=== PATIENT | male | born 1965 | race Caucasian/White ===

== ENCOUNTER 2020-07-15 13:52 | Outpatient (CLI) | payer BC, SELFPAY ==
--- NOTE | ~2020-07-15 | PE_ITS ---
EXAMINATION: PET skull to mid thigh DATE: 07/15/2020 16:08 INDICATION: Enlarged lymph nodes TECHNIQUE: Blood glucose level was 122 mg/dL. 8.976 mCi of 18-fluorodeoxyglucose (18-FDG) was adminis tered i.v. Low dose computed tomography (CT) images were acquired from the vertex through the knees f or attenuation correction and anatomic localization. Positron emission tomography (PET) images were a cquired in the same distribution beginning 68 minutes after injection. Images including fused PET/CT images were reconstructed in axial, coronal, and sagittal planes. Automated exposure control techniqu e was employed. The dose-length product was 1927.62mGy-cm. COMPARISON: None FINDINGS: Head/neck: There is symmetric increased activity in the oral cavity, nares, palatine tonsils, submandibular glan ds, laryngeal muscles and ocular muscles without CT correlate, likely physiologic. No pathologically enlarged cervical lymphadenopathy or suspicious foci of increased FDG uptake in the visualized head o r neck. Chest: Diffuse groundglass opacities throughout both lungs with dependent predominance and which along with some smooth septal line thickening at the lung bases is most consistent with pulmonary edema. No pleu ral effusion. Cardiomegaly. No pathologically enlarged thoracic lymphadenopathy. Mild muscular activi ty along the clavicular side of the left pectoralis major muscle without radiologic correlate which i s likely physiologic. No suspicious foci of abnormal thoracic FDG uptake. Abdomen/pelvis/thighs: Physiologic renal accumulation and excretion of FDG activity in the kidneys, bladder and along portio ns of ureters. Normal degree and heterogenous pattern of increased uptake throughout the liver withou t radiologic correlate or dominant FDG avid lesion. The gallbladder, pancreas, spleen and bilateral a drenal glands are normal. A few scattered colonic diverticula without adjacent from [address] diverticulitis. Mild uptake scattered throughout the bowels without radiologic correlate, also lik flores physiologic. Normal appendix. No other abnormal foci of increased FDG uptake or pathologically en larged lymphadenopathy in the abdomen, pelvis or proximal thighs. Specifically no abnormal FDG uptake associated with the previously noted prominent right inguinal lymph node which is comprised almost e ntirely of a large central fatty hilum. Musculoskeletal: C5-C6 interspinal fusion with plate and screw fixation. No suspicious lytic, blastic or FDG avid bone lesions. IMPRESSION: 1. No suspicious FDG avid lesions are pathologically enlarged lymphadenopathy to suggest malignancy/m etastatic disease. 2. Likely congestive heart failure with mild cardiomegaly and mild pulmonary edema. Reviewed, dictated and finalized at location A. IMPRESSION: 1. No suspicious FDG avid lesions are pathologically enlarged lymphadenopathy t o suggest malignancy/metastatic disease. 2. Likely congestive heart failure with mild cardiomegaly and mild pulmonary ed tiffany.
[2020-07-15 14:17] LABS: Glucose Point of Care 122 (65-105)
== END 2020-07-15 13:53 | disposition home or self-care (01) ==
PROVIDERS: PCP Family Medicine; Visit Provider Family Medicine
DX: R59.0 Localized enlarged lymph nodes (principal); I51.7 Cardiomegaly; J81.1 Chronic pulmonary edema
CPT/HCPCS: 78815; A9552

== ENCOUNTER 2020-11-02 15:09 | Emergency (ER) | payer BC, SELFPAY ==
--- NOTE | ~2020-11-02 | XR_ITS ---
EXAMINATION: XR chest 1V portable DATE: 11/02/2020 15:34 INDICATION: Shortness of breath, weakness, COVID pneumonia TECHNIQUE: frontal view of the chest was obtained. COMPARISON: Chest radiograph dated 05/04/1990 FINDINGS: Opacities at the right lung base partially obscured by the right hemidiaphragm which could represent atelectasis and/or pneumonia. No pulmonary edema, pleural effusion or pneumothorax. The cardiomediast inal silhouette is normal. Anterior plate and screw fixation for lower cervical anterior spinal fusio n. IMPRESSION: 1. Right basilar opacities which could represent atelectasis and/or pneumonia. Reviewed, dictated and finalized at location B. INTERCEPT CONTROLLER
[2020-11-02 15:13] VITALS: BP 145/93; PULSE 79; RESP 18; TEMP 36.6; O2SAT 97
[2020-11-02 15:16] VITALS: PULSE 80
--- NOTE | 2020-11-02 15:20 | ECG_ITS ---
Measurements Intervals Trion Rate: 77 P: 29 MT: 217 QRS: -58 QRSD: 118 T: 7 QT: 371 QTc: 421 Interpretive Statements SINUS RHYTHM WITH FIRST DEGREE AV BLOCK LEFT ANTERIOR FASCICULAR BLOCK BASELINE ARTIFACT- I, II, AVR, AVL ABNORMAL ECG Electronically Signed On 11-02-2020 15:55:10 [employer] by Dylan Garcia D.O.
[2020-11-02 15:32] LABS: Basophils Percent Auto 0.3 % (0.2-1.2); Eosinophils Absolute Auto 0.1 K/mm3 (0-0.3); Eosinophils Percent Auto 1.3 % (0-4.4); Hematocrit 48.3 % (42.0-52.0); Immature Granulocyte Absolute 0.04 K/mm3 (0.00-0.031); Immature Granulocyte Percent A 0.6 % (0-0.5); Lymphocytes Absolute Auto 1.39 K/mm3 (0.9-3.2); Lymphocytes Percent Auto 22.1 % (18.3-44.2); Mean Corpuscular HGB Conc 35.2 g/dl (32-36); Mean Corpuscular Volume 85.3 fl (80-100); Monocytes Absolute Auto 0.4 K/mm3 (0.1-0.6); Neutrophils Absolute Auto 4.3 K/mm3 (1.3-6.7); Neutrophils Percent Auto 68.7 % (45.5-73.1); Platelet Count Result 169 k/mm3 (150-375); Red Blood Count 5.66 M/mm3 (4.6-6.20); Red Cell Distribution Width 12.3 % (11.5-14.5); White Blood Count 6.3 K/mm3 (4.5-10.0)
[2020-11-02 15:42] LABS: Anion Gap 7 mmol/L (8-16); Blood Urea Nitrogen 16 mg/dL (9-20); Calcium 9.4 mg/dL (8.4-10.2); Carbon Dioxide 28 mmol/L (22-30); Chloride 103 mmol/L (98-107); Estimated CRCL calculation 106 ml/min; Estimated Glomerular Filt Rate > 60; Glucose 114 mg/dL (75-110); Potassium 3.8 mmol/L (3.4-5.0); Sodium 138 mmol/L (137-145)
[2020-11-02 15:49] LABS: Alveolar/Arterial O2 Gradient 29.2 mmHg; Base Excess ABG 0.9 mEq/l (+/-2.0); Device ROOM AIR; Fractional Inspired Oxygen 21 %; HCO3 ABG 25.3 mEq/l (22.0-26.0); Modified Allen's Test Pass; Oxygen Content ABG 22.1 %vol (16.0-22.0); Oxyhemoglobin 94.3 % THb (90.0-100.0); PCO2 ABG 39.8 mmHg (35.0-45.0); PO2 ABG 72.9 mmHg (80.0-100.0); PO2 FiO2 Ratio Arterial Blood 3.47 %; Site Drawn RIGHT RADIAL; Total Hemoglobin 16.7 g/dL (12.0-18.0); pH ABG 7.421 (7.350-7.450)
[2020-11-02 16:03] LABS: D Dimer 0.43 ug/mL (<0.48)
--- NOTE | 2020-11-02 16:22 | ED.SOB ---
HPI - SOB/Dyspnea General Chief Complaint: Shortness of Breath/Dyspnea Stated Complaint: COVID, PCP Sent Patient Time Seen by Provider: 11/02/20 15:15 Source: patient Mode of arrival: ambulatory Limitations: no limitations History of Present Illness HPI Narrative: 55 years old white male presents with shortness of breath on exertion. Patient had positive Covid test on October 25, Covid symptoms 2 to 3 days prior to that. Patient was seen at another emergency room 2 days ago for the same symptoms. Patient was asked by his family physician to go to the emergency room for evaluation. Currently patient denying any chest pain or shortness of breath as long as laying down in bed. Patient drove himself to the emergency room. Related Data Home Medications Medication Instructions Recorded Confirmed furosemide 11/02/20 metoprolol succinate PO 11/02/20 Allergies Allergy/AdvReac Type Severity Reaction Status Date / Time No Known Allergies Allergy Verified 11/02/20 15:17 Review of Systems Review of Systems: Narrative: CONSTITUTIONAL: Denies fever, chills, or sweats. EYES: Denies visual changes, redness, or discharge. ENT: Denies rhinorrhea, congestion, sore throat, or otalgia. CARDIOVASCULAR: Denies chest pain, palpitations, or edema. RESPIRATORY: Cough and shortness of breath on exertion GASTROINTESTINAL: Denies abdominal pain, nausea, vomiting, or diarrhea. GENITOURINARY: Denies dysuria or hematuria. SKIN: Denies rash or itching. MUSCULOSKELETAL: Denies back pain, joint pain, or myalgia. NEUROLOGIC: Denies headache, numbness, or weakness. PSYCHIATRIC: Denies anxiety or depression. Exam Narrative: Exam Narrative: General appearance: Well-developed, well-nourished Skin: Normal color Head: Normocephalic, nontraumatic Eyes: Clear conjunctiva ENT: Oropharynx normal, ears normal, nose normal Neck: Supple, nontender Chest and respiratory: Airway patent, no respiratory distress, no accessory muscle use, no wheezing or rhonchi Heart: Regular rate/rhythm Abdomen: Soft, nontender, no organomegaly, quiet bowel sounds Neurologic: Alert and oriented ?3, ANESTHESIOLOGY TECHNOLOGIST is normal as tested, no gross motor deficit Course Course Emergency Course: Stable Vital Signs Vital signs: Vital Signs Temperature 36.6 C 11/02/20 15:13 Pulse Rate 79 11/02/20 15:13 Respiratory Rate 18 12/15/20 15:13 Blood Pressure 145/93 H 11/02/20 15:13 Pulse Oximetry 97 11/02/20 15:13 Temperature 36.6 C 11/02/20 15:13 Pulse Rate 80 11/02/20 15:16 Respiratory Rate 18 11/02/20 15:13 Blood Pressure 145/93 H 11/02/20 15:13 Pulse Oximetry 97 11/02/20 15:13 MDM - SOB/Dyspnea MDM Narrative Medical decision making narrative: Patient had Covid symptoms 10 days ago, positive Covid test 8 days ago, came with shortness of breath on exertion. Labs, chest x-ray, ABG on room air, D-dimer ordered. Further plan to follow Differential Diagnosis Differential diagnosis: Likely pulmonary embolism and other (Covid pneumonia) Lab Data Result diagrams: 11/02/20 15:22 11/02/20 15:22 Labs: Lab Results 11/02/20 11/02/20 11/02/20 Range/Units 15:22 15:22 15:22 WBC 6.3 (4.5-10.0) K/mm3 RBC 5.66 (4.6-6.20) M/mm3 Hgb 17.0 (14.0-18.0) g/dL Hct 48.3 (42.0-52.0) % MCV 85.3 (80-100) fl MCH 30.0 (26-34) pg MCHC 35.2 (32-36) g/dl RDW 12.3 (11.5-14.5) % Plt Count 169 (150-375) k/mm3 MPV 11.0 H (7.4-10.4) fl Immature Gran % (Auto) 0.6 H (0-0.5) % Neut % (Auto) 68.7 (45.5-73.1) % Lymph % (Auto) 22.1 (18.3-44.2) % [place] % (Auto) 7.0 (2.6-8.5) % Eos % (Auto) 1.3 (0-4.4) % Baso
== END 2020-11-02 16:53 | disposition home or self-care (01) ==
PROVIDERS: Emergency Provider Emergency Medicine; PCP Nurse Practitioner Adult Health
DX: U07.1 COVID-19 (principal); R91.8 Other nonspecific abnormal finding of lung field; I44.0 Atrioventricular block, first degree; I44.4 Left anterior fascicular block
CPT/HCPCS: 36415; 36600; 71045; 80048; 82805; 85025; 85380; 93005; 99284

== ENCOUNTER 2020-12-10 08:30 | Outpatient (CLI) | payer BC, SELFPAY ==
--- NOTE | 2020-12-10 | ECHO_ITS ---
Patient Info Name: Ru Gallegos Age: 55 years : 1965 Gender: Male Ht: 73 in Wt: 270 lbs BSA: 2.55 m2 HR: 63 bpm BP: 146 / 102 mmHg Technical Quality: Fair Exam Date: 12/10/2020 9:14 AM Exam Location: [facility] Patient Status: Outpatient Admit Date: 12/10/2020 Staff Ordering Physician: GermánMimi NP Terrazzo Roller: Jessica Peterson RDCS Attending Provider: GermánMimi NP Exam Type: CA echo doppler color flow Study Info Indications - chf Complete two-dimensional, color flow and Doppler transthoracic echocardiogram is performed. Summary 1. Complete two-dimensional, color flow and Doppler transthoracic echocardiogram is performed. 2. Left ventricular chamber dimension is normal. 3. Left ventricular systolic function is normal, estimated at 60-65%. 4. The left ventricular diastolic function is grade I diastolic dysfunction. 5. E/e' 9 is minimally elevated. 6. Left atrial chamber dimension is mildly enlarged. 7. No pulmonary hypertension, estimated pulmonary arterial systolic pressure is 26 mmHg. Left Ventricle E/e' 9 is minimally elevated. Left ventricular chamber dimension is normal. Left ventricular systolic function is normal, estimated at 60-65%. The left ventricular diastolic function is grade I diastolic dysfunction. Right Ventricle Right ventricular chamber dimension is normal. Right ventricular systolic function is normal. Left Atria Left atrial chamber dimension is mildly enlarged. Right Atria Right atrial chamber dimension is normal. Aortic Valve The aortic valve is trileaflet. There is no aortic valve stenosis. There is no aortic valve regurgitation. Pulmonic Valve There is no pulmonic regurgitation. Mitral Valve There is no mitral valve stenosis. There is no mitral valve regurgitation. Tricuspid Valve There is no tricuspid valve regurgitation. No pulmonary hypertension, estimated pulmonary arterial systolic pressure is 26 mmHg. Pericardium/Pleural There is no pericardial effusion. Inferior Vena Cava Normal inferior vena cava with >50% collapse upon inspiration consistent with normal right atrial pressure, 5 mmHg. Aorta The aortic root size at the sinus of Valsalva is normal. Left Ventricular Outflow Tract Name Value Normal LVOT 2D LVOT Diameter 2.0 cm LVOT Doppler LVOT Peak Gradient 4 mmHg LVOT Mean Gradient 3 mmHg LVOT VTI 24 cm LVOT VTI/AV VTI Ratio 0.8 LVOT Stroke Volume 76 ml LVOT CO 15.7 l/min LVOT CI 6.2 l/min/m2 Pulmonic Valve Name Value Normal PV Doppler PV Peak Gradient 4 mmHg Mitral Valve
--- NOTE | 2020-12-10 13:53 | WPDSIXMINUTE ---
Six Minute Walk This is a 6 minutes walk for exertional dyspnea. Findings: The patient's resting room air oxygen saturation measured by pulse oximetry was 93% and her heart rate was 63 bpm. Patient ambulated for 274 meters and oxygen saturation remained 93 to 94%. Heart rate at the end of the study was 90 bpm. There are no prior studies for comparison.
== END 2020-12-10 08:31 | disposition home or self-care (01) ==
PROVIDERS: PCP Nurse Practitioner Adult Health; Visit Provider Nurse Practitioner Adult Health
DX: I50.9 Heart failure, unspecified (principal); Z99.81 Dependence on supplemental oxygen
CPT/HCPCS: 93306; 94618

== ENCOUNTER 2021-02-11 09:30 | Outpatient (RCR) | payer BC, SELFPAY ==
--- NOTE | 2021-01-11 09:06 | PCCPR ---
Recent Covid pneumonia October 2020
[2021-01-11 09:14] VITALS: BP 124/86; PULSE 56; RESP 20; TEMP 36.4; O2SAT 95
--- NOTE | 2021-01-28 09:52 | PCCPR ---
Addendum entered by Meche Soto RN 02/08/21 12:17: Called Theresa to inquire his plan to resume rehab. Unable to leave message mailbox is full. 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 Original Note: THERESA UNABLE TO ATTEND TODAY AND NEXT WEEK DUE TO WORK SCHEDULE. PLANS TO RETURN 02/08.
--- NOTE | 2021-02-15 10:16 | PCCPR ---
Absent today, Ru was called into work.
--- NOTE | 2021-03-18 10:29 | PCCPR ---
Addendum entered by Meche Soto RN 04/12/21 11:23: 04/12/21 LM for Ru to let him know since he has made no attempt to get in contact with us regarding his rotation schedule. We had even moved him to a later in day different day of week to accommodate his schedule. His last attended session was 02/11/21. Discharge note sent to Ru and his referring MD. Original Note: Spoke to Ru about attendance policy State he should be able to come to class next week 03/22/21 and Sunday03/25/21 and plans to discuss his availability. Reminded him of our attendance policy.
== END 2021-04-12 12:27 | disposition home or self-care (01) ==
LOC: ANHCPREHAB 09:30
PROVIDERS: PCP Nurse Practitioner Adult Health; Visit Provider Internal Medicine
DX: J12.82 Pneumonia due to coronavirus disease 2019 (principal)
CPT/HCPCS: 97150; G0239; G0424

== ENCOUNTER → 2021-07-21 04:35 | Outpatient (CLI) | payer BC, SELFPAY ==
[2021-07-22 18:14] LABS: SARS-CoV-2 RNA PCR Negative
== END ==
PROVIDERS: PCP Nurse Practitioner Adult Health; Visit Provider Family Medicine
DX: A08.4 Viral intestinal infection, unspecified (principal); Z20.822 Contact with and (suspected) exposure to COVID-19
CPT/HCPCS: C9803; U0003; U0005

== ENCOUNTER 2022-01-11 16:30 | Outpatient (CLI) | payer BC, SELFPAY ==
--- NOTE | ~2022-01-11 | US_ITS ---
EXAMINATION: US venous doppler [facility] EXAM DATE: 01/11/2022 17:02 INDICATION: Left calf pain. TECHNIQUE: Multiple grayscale, color flow and Doppler images of the left lower extremity deep venous system were obtained and reviewed. There is no prior study for comparison. FINDINGS: The left common femoral, femoral and profunda veins demonstrate normal color flow, respirat ory variation, augmentation and compressibility. Compressibility, color flow confirmed within the le ft popliteal, posterior tibial, peroneal, and greater saphenous veins. IMPRESSION: 1. No left lower extremity deep venous thrombosis. Reviewed, dictated and finalized at location G. OR ERP CONSULTANT
== END 2022-01-11 16:31 | disposition home or self-care (01) ==
LOC: ANHIMG 16:38
PROVIDERS: PCP Nurse Practitioner Adult Health; Visit Provider Nurse Practitioner Adult Health
DX: M79.662 Pain in left lower leg (principal)
CPT/HCPCS: 93971

== ENCOUNTER 2022-04-07 23:46 | Emergency (ER) | payer BC, SELFPAY ==
--- NOTE | ~2022-04-07 | XR_ITS ---
EXAMINATION: XR knee LT min 4V DATE: 04/08/2022 00:58 INDICATION: Left knee pain and swelling TECHNIQUE: Anteroposterior, 2 oblique and crosstable lateral views of the left knee were obtained COMPARISON: None. FINDINGS: Left knee alignment is normal. No fracture. Tiny marginal osteophytes all 3 compartments with normal joint spaces on nonweightbearing imaging. Tiny moderate-sized left knee joint effusion without layer ing lipohemarthrosis. Soft tissues are otherwise unremarkable. IMPRESSION: 1. Moderate-sized left knee joint effusion. No acute osseous abnormality. Reviewed, dictated and finalized at location A.
[2022-04-07 23:52] VITALS: BP 151/82; PULSE 74; RESP 18; TEMP 36.4; O2SAT 99
--- NOTE | 2022-04-08 00:30 | ED.EXTPRO ---
HPI - Extremity Problem General Chief complaint: Extremity Problem,Nontraumatic <JACQUES Flores Last Filed: 04/08/22 04:10> Stated complaint: left leg swelling <JACQUES Flores Last Filed: 04/08/22 04:10> Time Seen by Provider: 04/08/22 00:04 <JACQUES Flores Last Filed: 04/08/22 04:10> Source: patient <JACQUES Flores Last Filed: 04/08/22 04:10> Mode of arrival: ambulatory <JACQUES Flores Last Filed: 04/08/22 04:10> Limitations: no limitations <JACQUES Flores Filed: 04/08/22 04:10> History of Present Illness HPI Narrative: Patient is a 56-year-old male who presents the ED with report of left lower extremity pain and swelling. Patient reports having pain and swelling around his left lateral knee radiating down his left calf for the past 5 to 7 days. He states he just noticed the swelling randomly. Denies any direct injury. He states he can notice the swelling in his knee and calf the most when he bends his left knee. Denies any fever, chills, chest pain, shortness of breath, recent cough or cold symptoms. No history of blood clots. No recent immobilizations, surgeries, long distance travel. No blood thinners. He did take 324 mg aspirin today with no relief of his symptoms. <JACQUES Flores Last Filed: 04/08/22 04:10> Related Data Home medications: Home Medications Medication Instructions Recorded Confirmed furosemide 11/02/20 albuterol sulfate 90 mcg/actuation 1 inh INHALATION Q4H 11/22/20 01/11/21 aerosol inhaler metoprolol succinate 50 mg 50 mg PO DAILY 11/22/20 01/11/21 tablet,extended release 24 hr <JACQUES Flores Last Filed: 04/08/22 04:10> Allergies/Adverse reactions: Allergies Allergy/AdvReac Type Severity Reaction Status Date / Time No Known Allergies Allergy Verified 04/08/22 00:07 <Brenna Ross PA-C - Last Filed: 04/08/22 04:10> Review of Systems Review of Systems: CONSTITUTIONAL: Denies fever, chills, or sweats. ENT: Denies rhinorrhea, congestion. CARDIOVASCULAR: Denies chest pain. RESPIRATORY: Denies cough or dyspnea. GASTROINTESTINAL: Denies nausea, vomiting SKIN: Reports swelling to left lateral knee, radiating down left calf. Denies rash or itching. MUSCULOSKELETAL: Reports left knee pain. Denies back pain. NEUROLOGIC: Denies headache, numbness, or weakness. <Brenna Ross PA-C - Last Filed: 04/08/22 04:10> All systems reviewed & are unremarkable except as noted in HPI and below <Brenna Ross PA-C - Last Filed: 04/08/22 04:10> PMFSH Past Medical History Medical History: Medical History (Updated 04/08/22 @ 01:47 by Brenna Ross PA-C) Acid reflux Heartburn <Brenna Ross PA-C - Last Filed: 04/08/22 04:10> Surgical History Surgical History: Surgical History (Updated 04/08/22 @ 00:32 by Brenna Ross PA-C) No pertinent past surgical history <Brenna Ross PA-C - Last Filed: 04/08/22 04:10> Family History Family History: Family History (Updated 01/11/21 @ 09:10 by Meche Soto RN) Father Cerebrovascular accident Mother Cerebrovascular accident Cancer of kidney Sibling Chronic obstructive pulmonary disease <Brenna Ross PA-C - Last Filed: 04/08/22 04:10> Social History Social History: Social History Smoking packs per day: 1.5 Smoking cigarettes per day: 30.0 Years smoked: 12 Smoking pack-years: 18.00 Smoking status: Former smoker Tobacco type: cigarettes Smoking end date: 11/19/08 Additional smoking assessment comments: recent covid pnuemonia <Brenna Ross PA-C - Last Filed: 04/08/22 04:10> Exam Narrative: GENERAL: Well appearing, well-nourished, non-toxic, in no acute distress. HEAD: Normocephalic, atraumatic. NECK: Supple. No adenopathy, no masses. RESPIRATORY: Airway patent, respirations nonlabored. Cl
[2022-04-08 01:02] VITALS: BP 122/71; PULSE 68; RESP 20; O2SAT 99
[2022-04-08 01:13] LABS: Basophils Absolute Auto 0.1 K/mm3 (0.0-0.1); Basophils Percent Auto 0.8 % (0.2-1.2); Eosinophils Absolute Auto 0.5 K/mm3 (0-0.3); Hematocrit 44.6 % (42.0-52.0); Hemoglobin 15.1 g/dL (14.0-18.0); Immature Granulocyte Percent A 1.1 % (0-0.5); Lymphocytes Absolute Auto 2.81 K/mm3 (0.9-3.2); Lymphocytes Percent Auto 32.3 % (18.3-44.2); Mean Corpuscular HGB Conc 33.9 g/dl (32-36); Mean Corpuscular Hemoglobin 29.9 pg (26-34); Mean Corpuscular Volume 88.3 fl (80-100); Monocytes Absolute Auto 0.8 K/mm3 (0.1-0.6); Monocytes Percent Auto 8.6 % (2.6-8.5); Neutrophils Absolute Auto 4.5 K/mm3 (1.3-6.7); Neutrophils Percent Auto 51.2 % (45.5-73.1); Platelet Count Result 240 k/mm3 (150-375); Red Blood Count 5.05 M/mm3 (4.6-6.20); White Blood Count 8.7 K/mm3 (4.5-10.0)
[2022-04-08 01:23] LABS: Prothrombin Time 12.8 Seconds (11.1-14.7)
[2022-04-08 01:26] LABS: D Dimer 0.39 ug/mL (<0.48)
[2022-04-08 01:29] LABS: Anion Gap 9 mmol/L (8-16); Blood Urea Nitrogen 18 mg/dL (9-20); Calcium 8.7 mg/dL (8.4-10.2); Carbon Dioxide 28 mmol/L (22-30); Chloride 104 mmol/L (98-107); Estimated CRCL calculation 135 ml/min; Estimated Glomerular Filt Rate > 60; Glucose 128 mg/dL (65-110); Potassium 3.6 mmol/L (3.4-5.0); Sodium 141 mmol/L (137-145)
[2022-04-08 02:22] VITALS: BP 106/63; PULSE 68; RESP 18; O2SAT 99
== END 2022-04-08 02:22 | disposition home or self-care (01) ==
PROVIDERS: Physician Assistant; Emergency Provider Emergency Medicine; PCP Nurse Practitioner Adult Health
DX: M79.89 Other specified soft tissue disorders (principal); K21.9 Gastro-esophageal reflux disease without esophagitis; Z87.891 Personal history of nicotine dependence
CPT/HCPCS: 36415; 73564; 80048; 85025; 85380; 85610; 85730; 99283

== ENCOUNTER 2022-04-08 07:11 | Outpatient (CLI) | payer BC, SELFPAY ==
--- NOTE | ~2022-04-08 | US_ITS ---
EXAMINATION: US venous doppler [facility] DATE: 04/08/2022 07:51 INDICATION: Left lower limb pain and swelling TECHNIQUE: Grayscale ultrasound images without and with compression and Doppler ultrasound images of the left lower extremity veins were obtained. COMPARISON: None. FINDINGS: The visualized portions of left common femoral vein, profunda (deep) femoral vein, femoral vein, popl iteal vein, peroneal veins, posterior tibial veins, gastrocnemius vein, lesser saphenous vein and gre ater saphenous vein outflow are patent. IMPRESSION: 1. No deep venous thrombosis in the left lower limb. Reviewed, dictated and finalized at location A.
== END 2022-04-08 07:12 | disposition home or self-care (01) ==
PROVIDERS: PCP Nurse Practitioner Adult Health; Visit Provider Physician Assistant
DX: M79.89 Other specified soft tissue disorders (principal)
CPT/HCPCS: 93971

== ENCOUNTER 2022-05-15 15:05 | Observation (INO) | payer BC, SELFPAY ==
[2022-05-15] VITALS (22 sets, daily range): BP systolic 126–157; BP diastolic 65–93; PULSE 60–80; RESP 10–28; TEMP 36.4–36.6; O2SAT 93–99; BMI 36.1
--- NOTE | ~2022-05-15 | CT_ITS ---
Patient Name: Patient Name MR#: Patient MRN Accession#: Accession Numbers EXAMINATION: CTA brain carotid DATE: 05/15/2022 17:26 INDICATION: DIAZ with visual changes TECHNIQUE: Computed tomographic angiography (CTA) of the head was performed without and with 100 mL O mnipaque-350 intravenous contrast. CTA of the neck was performed with intravenous contrast. The dose- length product was 1848.94 mGy-cm. Maximum intensity projection and volume rendered 3D-reconstruction s were created by the technologist on a separate workstation. COMPARISON: CT brain 05/04/2019. FINDINGS: CTA NECK: Aortic arch and proximal great vessels: Minimal calcification at the arch. Mild calcified origin of t he right vertebral artery, without significant stenosis. Right common carotid, carotid bifurcation, and internal carotid artery: No significant plaque.There i s 0% stenosis of the proximal right internal carotid artery relative to normal distal artery lumen di ameter (NASCET criteria). Left common carotid, carotid bifurcation, and internal carotid artery: No significant plaque.There is 0% stenosis of the proximal left internal carotid artery relative to normal distal artery lumen diam eter (NASCET criteria). Vertebral arteries: No significant plaque or stenosis. The right vertebral artery is dominant. 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 Other findings: Peripheral reticulation and honeycombing in the right upper lung. Biapical pleural sc arring. ACDF at C5-6. CTA HEAD: No large vessel occlusion, aneurysm, high flow vascular malformation, nidus or extravasation. No acute large vessel infarct, intracranial hemorrhage, mass, or hydrocephalus. IMPRESSION: 1. No arterial large vessel occlusion. No significant carotid or vertebral stenosis. 2. No acute intracranial process. 3. 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 Reviewed, dictated and finalized at location K. IMPRESSION: 1. No arterial large vessel occlusion. No significant carotid or vertebral lorrie nosis. 2. No acute intracranial process. 3. 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
--- NOTE | ~2022-05-15 | XR_ITS ---
EXAMINATION: XR chest 2V 05/15/2022 16:24 INDICATION: Visual disturbance. . PROCEDURE: 2 view chest COMPARISON: Comparison to multiple prior studies sequentially, with oldest reviewed study dated 08/19. FINDINGS: The lungs are clear. The cardiomediastinal silhouette is within normal limits. There are no pleural effusions. There is no pneumothorax suspected. Shallow inspiration. IMPRESSION: 1: NO ACUTE CARDIOPULMONARY DISEASE. Reviewed, dictated and finalized at location A.
--- NOTE | ~2022-05-15 | MR_ITS ---
EXAMINATION: MR brain/brain stem wo/w con DATE: 05/16/2022 08:25 INDICATION: Strokelike symptoms with visual changes. Acute vision loss. TECHNIQUE: Magnetic resonance imaging (MRI) of the brain and brainstem was performed without and with 20 mL Multihance intravenous contrast. Sequences included sagittal and axial T1-weighted SE, axial d iffusion-weighted FS SE, axial T2*-weighted GRE, axial 3D SWAN, axial T2-weighted FLAIR, and axial T2 -weighted FSE. Postcontrast axial and coronal T1-weighted SE was obtained. Apparent diffusion coeffic ient (ADC) maps were created. COMPARISON: Brain CT angiogram dated 05/15/2022 FINDINGS: There are no areas of restricted diffusion to suggest acute infarction. No intracranial hemorrhage or abnormal intracranial mass lesion. There are no intraparenchymal signal abnormalities seen on the ot her pulse sequences. The ventricles are symmetric and normal in size. There are no abnormal extra-axi al fluid collections. Flow voids are seen in the cerebral arteries on the T2-weighted sequences consi stent with their expected patency. The right vertebral artery is dominant and appears to supply the e xclusive supply to the basilar artery. The diminutive left vertebral artery appears to terminate at t he left posterior inferior cerebellar artery on prior contrast enhanced CT. Mild mucosal thickening i n the paranasal sinuses. Visualized orbits and soft tissues are unremarkable. There are no areas of a bnormal enhancement on the post contrast images. IMPRESSION: 1. No acute intracranial process or abnormally enhancing brain lesions. Reviewed, dictated and finalized at location A.
--- NOTE | 2022-05-15 15:52 | PC.NURSE ---
Dr. Rucker at bedside to assess pt.
[2022-05-15 16:17] LABS: Basophils Absolute Auto 0.1 K/mm3 (0.0-0.1); Basophils Percent Auto 0.8 % (0.2-1.2); Eosinophils Absolute Auto 0.4 K/mm3 (0-0.3); Eosinophils Percent Auto 4.6 % (0-4.4); Hematocrit 44.2 % (42.0-52.0); Immature Granulocyte Absolute 0.05 K/mm3 (0.00-0.031); Immature Granulocyte Percent A 0.6 % (0-0.5); Lymphocytes Absolute Auto 2.12 K/mm3 (0.9-3.2); Lymphocytes Percent Auto 25.5 % (18.3-44.2); Mean Corpuscular HGB Conc 33.9 g/dl (32-36); Mean Corpuscular Hemoglobin 29.7 pg (26-34); Mean Corpuscular Volume 87.5 fl (80-100); Mean Platelet Volume 10.8 fl (7.4-10.4); Monocytes Absolute Auto 0.7 K/mm3 (0.1-0.6); Monocytes Percent Auto 8.5 % (2.6-8.5); Platelet Count Result 224 k/mm3 (150-375); Red Blood Count 5.05 M/mm3 (4.6-6.20); Red Cell Distribution Width 12.7 % (11.5-14.5); White Blood Count 8.3 K/mm3 (4.5-10.0)
[2022-05-15 16:28] LABS: Partial Thromboplastin Time 30.4 SECONDS (22.3-36.8)
[2022-05-15 16:30] LABS: Alanine Aminotransferase 64 U/L (6-50); Albumin Level 4.4 g/dL (3.5-5.1); Alkaline Phosphatase 60 U/L (38-126); Anion Gap 6 mmol/L (8-16); Aspartate Amino Transferase 40 U/L (17-59); Bilirubin,Total 1.3 mg/dL (0.2-1.3); Blood Urea Nitrogen 17 mg/dL (9-20); Calcium 9.1 mg/dL (8.4-10.2); Carbon Dioxide 30 mmol/L (22-30); Chloride 104 mmol/L (98-107); Estimated CRCL calculation 98 ml/min; Estimated Glomerular Filt Rate > 60; Glucose 108 mg/dL (65-110); Potassium 3.8 mmol/L (3.4-5.0); Sodium 140 mmol/L (137-145)
[2022-05-15 16:42] LABS: Troponin I < 0.012 ng/mL (0.000-0.034)
--- NOTE | 2022-05-15 17:08 | PC.NURSE ---
Patient off unit to CT.
[2022-05-15] MEDS: KETOROLAC 15 MG/ML VIAL (*BKC) IV PUSH (17:57)
--- NOTE | 2022-05-15 18:00 | ED.NEUROSD ---
HPI - Neuro Symptoms/Deficit General Chief Complaint: Neuro Symptoms/Deficit Stated Complaint: pcp sent here - vision changes last night Time Seen by Provider: 05/15/22 15:30 History of Present Illness HPI Narrative: Patient is a 56-year-old male who presents ER with visual disturbance and headache. Reports last night around 10:30 PM he began having acute loss of vision. He cannot read the gas station pump. This persisted and then he got in his car to drive and he began to develop discoloration in the periphery of his vision. Symptoms persisted for 30 minutes. They then went away. Today he has a mild headache. No slurred speech or facial droop today or yesterday. Denies difficulty with balance or focal weakness. No history of CVA. No history of migraine. Related Data Home Medications Medication Instructions Recorded Confirmed furosemide 20 mg tablet 11/02/20 albuterol sulfate 90 mcg/actuation 1 inh inhalation Q4H 11/22/20 01/11/21 aerosol inhaler metoprolol succinate 50 mg 50 mg PO DAILY 11/22/20 01/11/21 tablet,extended release 24 hr hydrochlorothiazide 12.5 mg tablet tablet 05/15/22 Allergies Allergy/AdvReac Type Severity Reaction Status Date / Time No Known Allergies Allergy Verified 05/15/22 15:19 Review of Systems Review of Systems: All systems reviewed & are unremarkable except as noted in HPI and below Constitutional: Constitutional: Denies chills and Denies fever(s) Eyes: Eyes: Reports change in vision and Denies photophobia Comments: Flashing lights and periphery ENT: Denies nasal congestion and Denies sore throat Cardiovascular: Cardiovascular: Denies chest pain, Denies rapid heart rate and Denies radiating jaw, neck or arm pain Respiratory: Respiratory: Denies cough and Denies dyspnea Neurologic: Denies syncope, Reports headache(s), Denies focal weakness and Denies numbness PMFSH Past Medical History Medical History (Updated 05/15/22 @ 18:27 by Maxx Rucker MD) Acid reflux Heartburn Hypertension Surgical History Surgical History (Updated 04/08/22 @ 00:32 by Brenna Ross PA-C) No pertinent past surgical history Family History Family History (Updated 01/11/21 @ 09:10 by Meche Soto RN) Father Cerebrovascular accident Mother Cerebrovascular accident Cancer of kidney Sibling Chronic obstructive pulmonary disease Social History Social History Smoking packs per day: 1.5 Smoking cigarettes per day: 30.0 Years smoked: 12 Smoking pack-years: 18.00 Smoking status: Former smoker Tobacco type: cigarettes Smoking end date: 11/19/08 Additional smoking assessment comments: recent covid pnuemonia Exam Narrative: GENERAL: Well-appearing, well-nourished, and in no acute distress. HEAD: Normocephalic, atraumatic. EYES: PERRLA and EOMI. ENT: Mucous membranes moist. CHEST: Clear to auscultation. No respiratory distress. HEART: Regular rate and rhythm. Normal peripheral pulses. ABDOMEN: Soft, nontender, nondistended. EXTREMITIES: Normal range of motion. No edema. SKIN: Warm, dry, no rash. NEURO: Alert and oriented x3. No upper or lower extremity drift. Cranial nerves II through XII intact. No slurred speech or dysarthria. PSYCH: Normal mood and affect. Course Course Emergency Course: Discussed with neurology. Recommend antiplatelet therapy and admission for observation and MRI in the morning. TIA versus migraine. Vital Signs Vital signs: Vital Signs Temperature 97.9 F 05/15/22 15:17 Pulse Rate 80 05/15/22 15:17 Respiratory Rate 18 05/15/22 15:17 Blood Pressure 157/93 H 05/15/22 15:17 Pulse Oximetry 99 05/15/22 15:17 Oxygen Delivery Room Air 05/15/22 15:17 Temperature 97.9 F 05/15/22 15:17 Pulse Rate 80 05/15/22 15:17 Respiratory Rate 18 05/15/22 15:17 Blood Pressure 157/93 H 05/15/22 15:17 Pulse Oximetry 99 05/15/22 15:17
[2022-05-15] MEDS: ASPIRIN 325 MG ENTERIC TABLET PO (18:35)
[2022-05-15] MEDS: CLOPIDOGREL BISULFATE 75 MG TABLET PO (18:35)
--- NOTE | 2022-05-15 19:15 | PC.NURSE ---
Patient report given to NIA Rose. All questions answered and care of patient transferred.
--- NOTE | 2022-05-15 20:37 | ADMGEN ---
This patient, Ru Gallegos, was admitted to Medical Room [facility] at 2034. Patient/family oriented to hospital policies and general routines including ID bracelet, bed and alarms, visiting hours, pain management, procedures, bathroom and other care routines, personal items, smoking policy, room service/diet, and visiting hours. Information on how to activate the Rapid Response Team has been discussed. Patient/Family are encouraged to report perceived risks to care and to ask questions if they do not understand what they are told or what they should do.
[2022-05-16] VITALS: PULSE 60
[2022-05-16 04:00] VITALS: PULSE 50
[2022-05-16 04:50] VITALS: BP 124/74; PULSE 60; RESP 16; TEMP 36.4; O2SAT 100
--- NOTE | 2022-05-16 10:34 | WPDNEURCNPN ---
Consult date: 05/16/22 Time Seen: 09:00 HPI: Ru Gallegos is a 56 year old male [facility] Past Medical History Medical History (Updated 05/15/22 @ 18:27 by Maxx Rucker MD) Acid reflux Heartburn Hypertension Surgical History Surgical History (Updated 04/08/22 @ 00:32 by Brenna Ross PA-C) No pertinent past surgical history Family History Family History Father Cerebrovascular accident Mother Cerebrovascular accident Cancer of kidney Sibling Chronic obstructive pulmonary disease Social History Social History Smoking packs per day: 1.5 Smoking cigarettes per day: 30.0 Years smoked: 17 Smoking pack-years: 25.50 Smoking status: Former smoker Tobacco type: cigarettes Smoking end date: 11/19/08 Additional smoking assessment comments: recent covid pnuemonia Alcohol intake: current Drinks per week: 1 Substance use: never Spiritual care concerns: No Meds Home Medications and Allergies Home Medications Medication Instructions Recorded Confirmed Type hydrochlorothiazide 12.5 mg tablet 12.5 mg PO DAILY 05/15/22 05/15/22 History Allergies Allergy/AdvReac Type Severity Reaction Status Date / Time No Known Allergies Allergy Verified 05/15/22 15:19 Vital Signs Vital Signs - 24 hr 05/15/22 15:17 05/15/22 15:32 05/15/22 15:45 Temperature 36.6 C Pulse Rate 80 78 77 Respiratory Rate 18 25 H 24 H Blood Pressure 157/93 H Pulse Oximetry 99 98 97 Oxygen Delivery Room Air 05/15/22 16:10 05/15/22 16:15 05/15/22 16:35 Temperature Pulse Rate 71 69 72 Respiratory Rate 23 H 22 H 21 H Blood Pressure Pulse Oximetry 98 99 97 Oxygen Delivery 05/15/22 16:45 05/15/22 17:26 05/15/22 17:40 Temperature Pulse Rate 68 70 77 Respiratory Rate 20 23 H 25 H Blood Pressure Pulse Oximetry 96 99 98 Oxygen Delivery 05/15/22 17:45 05/15/22 18:00 05/15/22 18:15 Temperature Pulse Rate 70 65 63 Respiratory Rate 16 28 H 10 L Blood Pressure Pulse Oximetry 95 98 Oxygen Delivery 05/15/22 18:35 05/15/22 18:39 05/15/22 18:45 Temperature Pulse Rate 65 61 62 Respiratory Rate 15 16 13 Blood Pressure 126/85 Pulse Oximetry 99 96 97 Oxygen Delivery 05/15/22 19:00 05/15/22 19:20 05/15/22 19:30 Temperature Pulse Rate 68 60 70 Respiratory Rate 17 13 21 H Blood Pressure Pulse Oximetry 97 93 98 Oxygen Delivery 05/15/22 19:31 05/15/22 17:00 05/15/22 20:57 Temperature 36.4 C Pulse Rate 63 62 Respiratory Rate 21 H 18 Blood Pressure 126/80 140/65 Pulse Oximetry 98 97 99 Oxygen Delivery 05/15/22 20:00 05/15/22 20:00 05/16/22 00:00 Temperature Pulse Rate 61 60 Respiratory Rate Blood Pressure Pulse Oximetry Oxygen Delivery Room Air 05/16/22 04:50 05/16/22 04:00 Temperature 36.4 C L Pulse Rate 60 50 L Respiratory Rate 16 Blood Pressure 124/74 Pulse Oximetry 100 Oxygen Delivery Results Labs CBC & Chem 7: 05/15/22 16:11 05/15/22 16:11 Labs: Short CBC 05/15/22 Range/Units 16:11 WBC 8.3 (4.5-10.0) K/mm3 Hgb 15.0 (14.0-18.0) g/dL Hct 44.2 (42.0-52.0) % Plt Count 224 (150-375) k/mm3 BMP 05/15/22 16:11 Sodium 140 Potassium 3.8 Chloride 104 Carbon Dioxide 30 BUN 17 Creatinine 1.00 Glucose 108 Calcium 9.1 Cardiac Enzymes 05/15/22 Range/Units 16:11 Troponin I < 0.012 (0.000-0.034) ng/mL Liver Function 05/15/22 Range/Units 16:11 Total Bilirubin 1.3 (0.2-1.3) mg/dL AST 40 (17-59) U/L ALT 64 H (6-50) U/L Alkaline Phosphatase 60 (38-126) U/L Albumin 4.4 (3.5-5.1) g/dL
--- NOTE | 2022-05-16 10:37 | WPDNEURCNPN ---
Assessment and Plan Assessment and plan (1) Transient cerebral ischemia: Code(s): G45.9 - Transient cerebral ischemic attack, unspecified Status: Acute Plan considering the visual symptomatology possibility of the TIA needs to be ruled out though the symptoms could very well be related to migrainous phenomena is routine lab studies are normal, CTA is negative name and the any major vessel disease and MRI of the brain is also normal Additional Plan he can be followed in the office with continuation of 1 baby aspirin daily and the symptomatology recurs will treat him for the possibility of migraine Consult date: 05/16/22 Time Seen: 09:00 Reason for consult: Visual dysfunction HPI: Ru Gallegos is a 56 year old male admitted to [facility] through the emergency room Bey he presented with visual difficulties and complaints of headaches starting around 10:30 p.m. on the night before visit to the emergency room he was unable to read the gas station pump the symptomatology persisted and by the time he was driving the car his vision was becoming discolored the periphery and the whole episode lasted for 30 minutes subsequently he developed headache but had no difficulties with any other parts of the body. He takes furosemide 20 mg daily metoprolol 50 mg daily and hydrochlorothiazide 12.5 mg daily. He has ongoing history of acid reflux disease and hypertension, he smokes 1/2 pack per day with smoking pack years of 18 but at present is a former smoker initial evaluation in the emergency room revealed him to have vital signs normal except blood pressure 157/93 and routine labs were normal so as the chest x-ray and CTA except the peripheral fibrosis in the right upper lung Review of Systems Review of Systems: All systems reviewed & are unremarkable except as noted in HPI and below PMFSH Past Medical History Medical History (Updated 05/15/22 @ 18:27 by Maxx Rucker MD) Acid reflux Heartburn Hypertension Surgical History Surgical History (Updated 04/08/22 @ 00:32 by Brenna Ross PA-C) No pertinent past surgical history Family History Family History Father Cerebrovascular accident Mother Cerebrovascular accident Cancer of kidney Sibling Chronic obstructive pulmonary disease Social History Social History Smoking packs per day: 1.5 Smoking cigarettes per day: 30.0 Years smoked: 17 Smoking pack-years: 25.50 Smoking status: Former smoker Tobacco type: cigarettes Smoking end date: 11/19/08 Additional smoking assessment comments: recent covid pnuegregia Alcohol intake: current Drinks per week: 1 Substance use: never Spiritual care concerns: No Meds Home Medications and Allergies Home Medications Medication Instructions Recorded Confirmed Type hydrochlorothiazide 12.5 mg tablet 12.5 mg PO DAILY 05/15/22 05/15/22 History Allergies Allergy/AdvReac Type Severity Reaction Status Date / Time No Known Allergies Allergy Verified 05/15/22 15:19 Vital Signs Vital Signs - 24 hr 05/15/22 15:17 05/15/22 15:32 05/15/22 15:45 Temperature 36.6 C Pulse Rate 80 78 77 Respiratory Rate 18 25 H 24 H Blood Pressure 157/93 H Pulse Oximetry 99 98 97 Oxygen Delivery Room Air 05/15/22 16:10 05/15/22 16:15 05/15/22 16:35 Temperature Pulse Rate 71 69 72 Respiratory Rate 23 H 22 H 21 H Blood Pressure Pulse Oximetry 98 99 97 Oxygen Delivery 05/15/22 16:45 05/15/22 17:26 05/15/22 17:40 Temperature Pulse Rate 68 70 77 Respiratory Rate 20 23 H 25 H Blood Pressure Pulse Oximetry 96 99 98 Oxygen Delivery 05/15/22 17:45 05/15/22 18:00 05/15/22 18:15 Temperature Pulse Rate 70 65 63 Respiratory Rate 16 28 H 10 L Blood Pressure Pulse Oximetry 95 98 Oxygen Delivery 05/15/22 18:35 05/15/22 18:39 05/15/22 18:45
[2022-05-16 11:43] LABS: Cholesterol 210 mg/dL (0-200); HDL Direct 35 mg/dL; Triglycerides 146 mg/dL (<150)
[2022-05-16 11:50] LABS: Hemoglobin A1C 5.8 % (<5.7)
[2022-05-16 11:54] LABS: LDL Cholesterol Direct 140 mg/dL
[2022-05-16 12:00] VITALS: PULSE 63
--- NOTE | 2022-05-16 13:51 | PM.SD2 ---
Same Day Admit/Disch: HPI History of Present Illness Chief complaint: TIA Narrative: Date of service: 05/16/2022 Ru Gallegos is a 56 year old male with a history of hypertension, GERD, and arthritis who presented to the emergency department on 05/15/2022 with complaints of visual disturbances. 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 He was watching the numbers on the pump when he noticed that he could only see 2 of the numbers and had trouble seeing the others. He noticed that when he looked around he was seeing flashing lights in his vision. He then got back in his car to drive home when he started noticing blue and red flashes of light in the upper periphery of his vision. He was still able to see the road an oncoming cars clearly. He drove to his daughter's house because it was closer. He went inside and sat down for a while and started to feel better. His visual disturbances bedside. The next day he woke up with a mild frontal/bitemporal headache that he noted worsened if he cleared his throat or coughed. He did feel a bit lightheaded with this. His headache persisted for approximately 24 hours in the culmination of this plus the visual changes from 2 days prior prompted him to seek emergency care. In the ED, his vital signs were stable, CBC and BMP unremarkable, troponin negative, chest x-ray with no acute findings, and head/neck CTA showed no arterial large vessel occlusion, no significant carotid or vertebral stenosis, and no acute intracranial process. He received a migraine cocktail and his headache resolved entirely. He was admitted to the hospitalist service for further evaluation and management and Neurology was consulted. On my encounter with the patient, he was feeling back to his usual state of health. His lightheadedness had resolved. He denied dizziness. He had been up and walking around his room. He denied date flow via, tunnel vision, current like loss of vision. He stated his vision was back to normal, noting occasionally issues with distance vision for which he has been dealing with for some time and is scheduling an appointment with an environmental science professor for this. He denies speech changes. Denied weakness. Denied facial drooping. Brain MRI evaluated during admission again showed no acute intracranial process or but normally enhancing brain lesions. He was evaluated by Neurology recommended daily aspirin 81 mg. He had no focal neurologic deficits. Symptoms most likely due to TIA. ABCD2 score = 2. Additional consideration is migraine, though patient denies history of this. Lipid panel was reviewed with slight elevation in total cholesterol and LDL. A1c was 5.8, indicating increased risk for diabetes. Discussed dietary and lifestyle changes with the patient. ASCVD risk score = 10.3%. Moderate intensity statin recommended, however patient declined. States he follows up with his PCP who will monitor and he prefers not to initiate medication. Blood pressures were well controlled. Given the patient had complete resolution of symptoms, he was determined to no longer require inpatient care and was discharged in hemodynamically stable condition on 05/16/2022. Discussed with the patient worrisome signs and symptoms for which to return and he was educated on his medications. He will follow-up with neurology if symptoms recur. He will follow-up with his PCP in 1-2 weeks for close monitoring. [facility] Past Medical History Medical History (Updated 05/16/22 @ 16:57 by Meghan Voss PA-C) Acid reflux Arthritis Heartburn Hypertension Pneumonia due to COVID-19 virus Surgical History Surgical History (Updated 05/16/22 @ 16:57 by Meghan Voss PA-C) History of fusion of cervical spine History of hemorrhoidectomy History of knee surgery Family History Family History Father Cerebrovascular accident Mother Cerebrovascular accident Cancer of ki
== END 2022-05-16 15:48 | disposition home or self-care (01) ==
LOC: ANHED 18:27 → ANH3MED 18:41
PROVIDERS: Admitting Provider Internal Medicine; Emergency Provider Emergency Medicine; PCP Nurse Practitioner Adult Health; Visit Provider Physician Assistant
DX: G45.9 Transient cerebral ischemic attack, unspecified (principal); I10 Essential (primary) hypertension; K21.9 Gastro-esophageal reflux disease without esophagitis; Z87.891 Personal history of nicotine dependence; E78.5 Hyperlipidemia, unspecified; R73.03 Prediabetes
CPT/HCPCS: 36415; 70496; 70498; 70553; 71046; 80053; 80061; 83036; 84484; 85025; 85610; 85730; 96374; 99285; A9270; A9577; G0378; J1885; Q9967

== ENCOUNTER 2022-10-01 19:43 | Emergency (ER) | payer BC, SELFPAY ==
--- NOTE | ~2022-10-01 | CT_ITS ---
EXAMINATION: CT brain wo con DATE: 10/01/2022 23:34 INDICATION: Head injury. TECHNIQUE: Computed tomography (CT) of the head was performed without intravenous contrast. The mA wa s adjusted according to patient size. Iterative reconstruction technique was employed. The dose-lengt h product was 605.33 mGy-cm. COMPARISON: Head CT 05/15/2022, brain MRI 05/16/2022 FINDINGS: There is no intracranial hemorrhage, acute infarction, or abnormal intracranial mass lesion . The ventricles are normal in size. There is mild mucosal thickening in the paranasal sinuses. The o rbits are normal. The mastoid air cells are normal. IMPRESSION: 1. Normal brain. Reviewed, dictated and finalized at location A. HABILITATION SPECIALIST IMPRESSION: 1. Normal brain.
--- NOTE | ~2022-10-01 | XR_ITS ---
EXAMINATION: XR shoulder LT min 2V DATE: 10/01/2022 23:35 INDICATION: Left shoulder pain. TECHNIQUE: 3 views of left shoulder were obtained. COMPARISON: None. FINDINGS: Bone alignment is normal. No fracture. The glenohumeral joint is normal. There is severe ac romioclavicular joint osteoarthritis. IMPRESSION: 1. Severe left acromioclavicular joint osteoarthritis. Reviewed, dictated and finalized at location A. TIC FRAME INSERTER
--- NOTE | ~2022-10-01 | CT_ITS ---
EXAMINATION: CT cervical spine wo con DATE: 10/01/2022 23:35 INDICATION: Head injury. Neck pain. TECHNIQUE: Computed tomography (CT) of the cervical spine was performed without intravenous contrast. Automated exposure control and iterative reconstruction technique were employed. The dose-length pro duct was 524.02 mGy-cm. COMPARISON: CT cervical spine 08/30/2006 FINDINGS: There is kyphosis of cervical spine. There is 7 degrees dextrocurvature of cervical spine. There are changes of anterior fusion procedure at C5-C6 with healed interbody bone graft and anterior plate and screws. There is mildly decreased disc height at C3-C4 and moderately decreased disc heigh t at C4-C5 and C6-C7. There is 2 mm anterolisthesis of C7 on T1. There is mild chronic anterior wedgi ng of T1 vertebral body. The following disc levels are specifically discussed: C2-C3: There is mild bilateral uncovertebral joint osteoarthritis. There is moderate right and severe left facet joint osteoarthritis. There is mild left neural foraminal stenosis. There is no central c anal stenosis. C3-C4: There is mild right and moderate left uncovertebral joint osteoarthritis. There is mild right and severe left facet joint osteoarthritis. There is moderate left neural foraminal stenosis. There i s mild central canal stenosis. C4-C5: There is severe bilateral uncovertebral joint osteoarthritis. There is mild right and moderate left facet joint osteoarthritis. There is moderate right and mild left neural foraminal stenosis. Th ere is mild central canal stenosis. C5-C6: There is mild left uncovertebral joint hypertrophy. There is ankylosis of the facet joints wit hout hypertrophy. There is no neural foraminal stenosis. There is mild central canal stenosis. C6-C7: There is moderate right and severe left uncovertebral joint osteoarthritis. There is severe bi lateral facet joint osteoarthritis. There is mild right and moderate left neural foraminal stenosis. There is mild central canal stenosis. C7-T1: There is no uncovertebral joint osteoarthritis. There is severe bilateral facet joint osteoart hritis. There is mild bilateral neural foraminal stenosis. There is no central canal stenosis. IMPRESSION: 1. No fracture. 2. Moderate cervical spondylosis. 3. Anterior fusion procedure at C5-C6. Reviewed, dictated and finalized at location A. KEEPER
[2022-10-01 20:01] VITALS: BP 153/92; PULSE 78; RESP 20; TEMP 36.3; O2SAT 98
--- NOTE | 2022-10-01 22:55 | ED.FALL ---
HPI - Fall General Chief Complaint: Fall Stated Complaint: shoulder injury post fall Time Seen by Provider: 10/01/22 22:37 Source: patient and RN notes reviewed Mode of arrival: ambulatory Limitations: no limitations History of Present Illness HPI Narrative: This is a 57 year old male with history of hypertension and chronic neck issues who presents for evaluation of neck pain and shoulder pain s/p fall. Patient states he fell on Sunday at his home. He fell onto his left side on his kitchen floor . He hit his head but he denies LOC. He has been having worsening neck pain and left shoulder pain since his fall. He states he is having difficulty looking up due to his pain. He states if he leans his head down, his pain improves. He has neck pain that radiates to his left shoulder. He has been applying ice and heat. He has also been taking ibuprofen for his pain and his last dose was 6 hours ago. He denies nausea, vomiting. He denies arm weakness, numbness or tingling. MD complaint: fall Onset (ago): day(s) Fall from: standing Related Data Home Medications Medication Instructions Recorded Confirmed hydrochlorothiazide 12.5 mg tablet 12.5 mg PO DAILY 05/15/22 05/15/22 Allergies Allergy/AdvReac Type Severity Reaction Status Date / Time No Known Allergies Allergy Verified 05/15/22 15:19 Review of Systems Review of Systems: All systems reviewed & are unremarkable except as noted in HPI and below Constitutional: Constitutional: Denies chills and Denies fatigue Eyes: Eyes: Denies change in vision and Denies photophobia Musculoskeletal: Musculoskeletal: Reports arthralgias Neurologic: Reports headache(s), Denies focal weakness and Denies numbness PMFSH Past Medical History Medical History Acid reflux Arthritis Heartburn Hypertension Pneumonia due to COVID-19 virus Surgical History Surgical History History of fusion of cervical spine History of hemorrhoidectomy History of knee surgery Family History Family History Father Cerebrovascular accident Mother Cerebrovascular accident Cancer of kidney Sibling Chronic obstructive pulmonary disease Social History Social History (Updated 05/16/22 @ 16:59 by Meghan Voss PA-C) Social History: Mr. Maya lives at home alone and his grandson stays with him frequently. He is independent in his daily activities. He works at the [employer]. His primary care provider is Mimi Coello NP. He has 2 daughters, Amelia and Chely, who he designates as his surrogate decision maker. He would like to be a full code. Smoking packs per day: 1 Smoking cigarettes per day: 20.0 Years smoked: 15 Smoking pack-years: 15.00 Smoking status: Former smoker Tobacco type: cigarettes Additional smoking assessment comments: recent covid pnuemonia Alcohol intake: current Drinks per week: 1 Substance use: never Spiritual care concerns: No Exam Const: General: no acute distress and alert Nutritional Appearance: well nourished Orientation/consciousness: patient oriented x3 HENMT: Head: normal to inspection Mouth: Yes Normal oral and palatal mucosa present Throat: posterior oropharynx normal Eyes: Pupils: Equal, round and reactive pupils present EOM: EOMs intact bilaterally Chest: Chest palpation & inspection: normal inspection of the chest and no tenderness Resp: Effort & Inspection: normal respiratory effort Auscultation: clear to auscultation bilaterally Cardio: Rate: regular rate Rhythm: regular rhythm Heart sounds: no murmurs GI: GI Palp: Yes Soft to palpation, No Tenderness to palpation present (GI), No Guarding due to palpation present (GI) and No Rigid due to palpation Auscultation: normal bowel sounds Back/Spine/Pelvis: Cervical Spine: cervical muscular tenderness, pain with
[2022-10-01] MEDS: KETOROLAC (*BKC) 60 MG/2 ML VIAL IM (23:05)
[2022-10-02 00:59] VITALS: BP 150/84; PULSE 80; RESP 20; O2SAT 98
== END 2022-10-02 01:00 | disposition home or self-care (01) ==
PROVIDERS: Emergency Provider General Practice; PCP Nurse Practitioner Adult Health
DX: S16.1XXA Strain of muscle, fascia and tendon at neck level, initial encounter (principal); S09.90XA Unspecified injury of head, initial encounter; I10 Essential (primary) hypertension; K21.9 Gastro-esophageal reflux disease without esophagitis; M19.90 Unspecified osteoarthritis, unspecified site; Z87.01 Personal history of pneumonia (recurrent); Z86.16 Personal history of COVID-19; Z98.1 Arthrodesis status; Z87.891 Personal history of nicotine dependence; M19.012 Primary osteoarthritis, left shoulder; M47.812 Spondylosis without myelopathy or radiculopathy, cervical region; W19.XXXA Unspecified fall, initial encounter
CPT/HCPCS: 70450; 72125; 73030; 96372; 99284; J1885

== ENCOUNTER 2023-05-12 01:57 | Emergency (ER) | payer BC, SELFPAY ==
--- NOTE | ~2023-05-12 | XR_ITS ---
XR chest 2V DATE: 05/12/2023 03:52 INDICATION: Cough, shortness of breath TECHNIQUE: PA and lateral views COMPARISON: 05/15/2022 PA and lateral chest FINDINGS: Heart size is within normal range. No hilar or mediastinal enlargement is detected. Chronic mild elevation right leaf of the diaphragm. Minimal atelectasis is suggested at the right jayro g base. No pulmonary consolidation or pleural effusion, pulmonary vascular congestion or pneumothorax is dete cted. Status post anterior lower cervical spine surgical fusion. IMPRESSION: Minimal atelectasis at right lung base Reviewed, dictated and finalized at location A.
[2023-05-12 02:01] VITALS: BP 160/89; PULSE 86; RESP 20; TEMP 36.6; O2SAT 98
[2023-05-12 03:32] VITALS: BP 122/42; PULSE 68; RESP 22
[2023-05-12 03:46] LABS: Influenza A QL RT-PCR Negative (Negative); Influenza B QL RT-PCR Negative (Negative); RSV RNA, RT-PCR Negative (Negative); SARS-CoV-2 RNA PCR Negative (Negative)
[2023-05-12] MEDS: ALBUTEROL SULFATE NEB 2.5 MG/3 ML INH 5 MG INHALATION (04:16)
--- NOTE | 2023-05-12 04:16 | ED.GENADULT ---
HPI - General Adult General Chief complaint: Upper Respiratory Infection Stated complaint: Coughing, sob, DIAZ, nausea Time Seen by Provider: 05/12/23 03:01 History of Present Illness HPI narrative: 57-year-old male presented emergency department for evaluation of persistent cough congestion and shortness of breath. Patient states symptoms have been ongoing for the last few weeks. Patient reports he did used to smoke for 15 years. Patient denies any associated chest pain with it. Patient states he does not feel short of breath but feels difficulty taking a deep breath. Patient was recently treated with amoxicillin and had no improvement in his symptoms. Related Data Home Medications Medication Instructions Recorded Confirmed hydrochlorothiazide 12.5 mg tablet 12.5 mg PO DAILY 05/15/22 05/15/22 Allergies Allergy/AdvReac Type Severity Reaction Status Date / Time No Known Allergies Allergy Verified 05/12/23 02:04 Review of Systems Review of Systems: All systems reviewed & are unremarkable except as noted in HPI and below PMFSH Past Medical History Medical History Acid reflux Arthritis Heartburn Hypertension Pneumonia due to COVID-19 virus Surgical History Surgical History History of fusion of cervical spine History of hemorrhoidectomy History of knee surgery Family History Family History Father Cerebrovascular accident Mother Cerebrovascular accident Cancer of kidney Sibling Chronic obstructive pulmonary disease Social History Social History (Updated 05/16/22 @ 16:59 by Meghan Voss PA-C) Social History: Mr. Maya lives at home alone and his grandson stays with him frequently. He is independent in his daily activities. He works at the [employer]. His primary care provider is Mimi Coello NP. He has 2 daughters, Amelia and Chely, who he designates as his surrogate decision maker. He would like to be a full code. Smoking packs per day: 1 Smoking cigarettes per day: 20.0 Years smoked: 15 Smoking pack-years: 15.00 Smoking status: Former smoker Tobacco type: cigarettes Additional smoking assessment comments: recent covid pnuemonia Alcohol intake: current Drinks per week: 1 Substance use: never Spiritual care concerns: No Exam Narrative: APPEARANCE: Well appearing, no pain, no distress, well-nourished. HEAD: normocephalic, atraumatic. EYES: PERRLA/EOMI, conjunctivae clear. NOSE: Normal no drainage EARS:TMS clear with good light reflex. THROAT: Pharynx clear, no exudate. NECK: Supple. No adenopathy, no masses. RESPIRATORY: Expiratory wheeze CARDIOVASCULAR: Regular rate and rhythm without murmurs rubs or gallops. ABDOMINAL: Soft, nontender, nondistended, normal bowel sounds MUSCULOSKELETAL: Moves all extremities. Strength/ROM intact, No edema, No calf tenderness. NEURO: Alert. Cranial nerves II through XII intact. SKIN: Warm, dry. Normal Color Course Course Emergency Course: 57-year-old male presented the emergency department for evaluation of cough congestion and shortness of breath. Patient did have some expiratory wheeze on exam. Patient was treated with nebulizer butyryl. Chest x-ray shows no acute cardiopulmonary abnormality. Patient was treated as a potential Monia/COPD exacerbation. Patient was provided albuterol nebulizer for home and started on antibiotic patient does have prior history of COVID he had previously had follow-up with the lpn or medical assistant. Patient was encouraged to once again have pulmonary follow-up. All questions concerns were addressed. Patient was educated on reasons to return to the emergency department. Vital Signs Vital signs: Vital Signs Temperature 97.9 F 05/12/23 02:01 Pulse Rate 86 05/12/23 02:01 Respiratory Rate 20 05/12/23 02:01 Blood Pres
[2023-05-12 04:19] VITALS: PULSE 61; RESP 12
[2023-05-12 04:30] VITALS: PULSE 61; RESP 12
[2023-05-12] MEDS: DOXYCYCLINE HYCLATE 100 MG TABLET PO (04:56)
[2023-05-12 05:00] VITALS: BP 133/76; PULSE 68; RESP 18; O2SAT 96
== END 2023-05-12 05:05 | disposition home or self-care (01) ==
PROVIDERS: Emergency Provider Emergency Medicine; PCP Family Medicine
DX: R05.9 Cough, unspecified (principal); I10 Essential (primary) hypertension; Z20.822 Contact with and (suspected) exposure to COVID-19; K21.9 Gastro-esophageal reflux disease without esophagitis; M19.90 Unspecified osteoarthritis, unspecified site; Z86.16 Personal history of COVID-19; Z87.01 Personal history of pneumonia (recurrent); Z87.891 Personal history of nicotine dependence; Z98.1 Arthrodesis status
CPT/HCPCS: 71046; 87637; 94640; 99283; A9270

== ENCOUNTER 2023-07-10 15:57 | Emergency (ER) | payer BC, SELFPAY ==
--- NOTE | ~2023-07-10 | XR_ITS ---
EXAMINATION: XR chest 2V DATE: 07/10/2023 16:23 INDICATION: Cough and fever TECHNIQUE: PA and lateral views of the chest were obtained. COMPARISON: Chest radiograph dated 05/12/23 FINDINGS: The lungs are clear with no focal airspace opacities, pulmonary edema, pleural effusion or pneumothor ax. The cardiomediastinal silhouette is normal. Internal plate and screw fixation for lower cervical anterior spinal fusion. IMPRESSION: 1. No acute cardiopulmonary disease. Reviewed, dictated and finalized at location A.
[2023-07-10 16:00] VITALS: BP 138/84; PULSE 98; RESP 16; TEMP 37.4; O2SAT 98
--- NOTE | 2023-07-10 16:09 | ED.URI ---
HPI - URI/Sore Throat General Chief Complaint: Upper Respiratory Infection Stated Complaint: COUGH/HEADACHE/NAUSEA Source: patient and RN notes reviewed Mode of arrival: ambulatory Limitations: no limitations History of Present Illness HPI Narrative: Patient is a 58-year-old male who presents to the [facility] with multiple complaints. Patient reports a frequent nonproductive cough. States that he has had an infrequent cough for months but it became more frequent over the last couple days. He also endorses a headache, nausea, and generalized body aches. He reports increased fatigue. States that he has been experiencing sweats and chills but denies known fevers. He denies nasal congestion. Denies chest pain or shortness of breath. Patient states that his grandson recently tested positive for COVID. Related Data Home Medications Medication Instructions Recorded Confirmed hydrochlorothiazide 12.5 mg tablet 12.5 mg PO DAILY 05/15/22 07/10/23 nitroglycerin 0.4 mg sublingual 0.4 mg sublingual PRN PRN Chest 07/10/23 07/10/23 tablet Pain torsemide 10 mg tablet 10 mg PO DAILY 07/10/23 07/10/23 Allergies Allergy/AdvReac Type Severity Reaction Status Date / Time No Known Allergies Allergy Verified 05/12/23 02:04 Review of Systems Review of Systems: CONSTITUTIONAL: Denies fever, but reports chills and sweats. EYES: Denies visual changes, redness, or discharge. ENT: Denies otalgia and sore throat. CARDIOVASCULAR: Denies chest pain, palpitations, or edema. RESPIRATORY: Reports cough but denies dyspnea. GASTROINTESTINAL: Denies abdominal pain, vomiting, or diarrhea. Reports nausea. GENITOURINARY: Denies dysuria or hematuria. SKIN: Denies rash or itching. MUSCULOSKELETAL: Denies back pain or joint pain. Reports myalgia. NEUROLOGIC: Reports headache, but denies numbness or weakness. Pertinent positives per HPI. [facility] Past Medical History Medical History Acid reflux Arthritis Heartburn Hypertension Pneumonia due to COVID-19 virus Surgical History Surgical History History of fusion of cervical spine History of hemorrhoidectomy History of knee surgery Family History Family History Father Cerebrovascular accident Mother Cerebrovascular accident Cancer of kidney Sibling Chronic obstructive pulmonary disease Social History Social History Social History: Mr. Maya lives at home alone and his grandson stays with him frequently. He is independent in his daily activities. He works at the [employer]. His primary care provider is Mimi Coello NP. He has 2 daughters, Amelia and Chely, who he designates as his surrogate decision maker. He would like to be a full code. Smoking packs per day: 1 Smoking cigarettes per day: 20.0 Years smoked: 15 Smoking pack-years: 15.00 Smoking status: Former smoker Tobacco type: cigarettes Additional smoking assessment comments: recent covid pnuemonia Alcohol intake: current Drinks per week: 1 Substance use: never Spiritual care concerns: No Comments At the time of my signature, I reviewed and agree with the nursing past medical, surgical, social, and family history. There is no relevant family history pertinent to the patient complaint. Exam Narrative: GENERAL: This is a well-nourished, well-developed patient, in no apparent distress. Ill-appearing. HEAD: normocephalic, atraumatic. EYES: Sclera clear/white. Vision is grossly intact. EARS: External ears normal. Hearing grossly intact. NOSE: External nose normal with no obvious nasal discharge, nares without redness, no rhinorrhea. THROAT: Mucous membranes moist, posterior pharynx clear. NECK: Neck supple, non-tender without lymphadenopathy, masses or thyromegaly. C
== END 2023-07-10 16:38 | disposition home or self-care (01) ==
PROVIDERS: Emergency Provider Nurse Practitioner; PCP Family Medicine
DX: J40 Bronchitis, not specified as acute or chronic (principal); Z20.822 Contact with and (suspected) exposure to COVID-19; Z87.891 Personal history of nicotine dependence; K21.9 Gastro-esophageal reflux disease without esophagitis; M19.90 Unspecified osteoarthritis, unspecified site; R12 Heartburn; I10 Essential (primary) hypertension; Z86.16 Personal history of COVID-19
CPT/HCPCS: 71046; 87426; 99213; C9803; G0463

== ENCOUNTER 2023-08-23 19:52 | Emergency (ER) | payer BC, SELFPAY ==
[2023-08-23 20:06] VITALS: BP 151/97; PULSE 84; RESP 16; TEMP 36.4; O2SAT 96
--- NOTE | 2023-08-23 20:26 | ED.SKABFB ---
HPI - Skin/Abscess/Foreign Bdy General Chief complaint: Skin/Abscess/Foreign Body Stated complaint: Rash Time Seen by Provider: 08/23/23 20:09 Source: patient Mode of arrival: ambulatory Limitations: no limitations History of Present Illness HPI narrative: Patient presents today with a 2 day history of pruritic rash to the bilateral arms that has spread to the right flank, abdomen, and legs. 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 He has been using [id number] lotion for itching, which provided some short-term relief. Related Data Home Medications Medication Instructions Recorded Confirmed hydrochlorothiazide 12.5 mg tablet 12.5 mg PO DAILY 05/15/22 08/23/23 Allergies Allergy/AdvReac Type Severity Reaction Status Date / Time No Known Allergies Allergy Verified 08/23/23 20:14 Review of Systems Review of Systems: CONSTITUTIONAL: Denies body aches, fever, chills, or sweats. EYES: Denies visual changes, redness, or discharge. ENT: Denies rhinorrhea, congestion, sore throat, or otalgia. CARDIOVASCULAR: Denies chest pain, palpitations, or edema. RESPIRATORY: Denies cough or dyspnea. GASTROINTESTINAL: Denies abdominal pain, nausea, vomiting, or diarrhea. GENITOURINARY: Denies dysuria or hematuria. SKIN: + pruritic rash MUSCULOSKELETAL: Denies back pain, joint pain, or myalgia. NEUROLOGIC: Denies headache, numbness, tingling, or weakness. PSYCH: Denies depression or anxiety. [facility] Past Medical History Medical History Acid reflux Arthritis Heartburn Hypertension Pneumonia due to COVID-19 virus Surgical History Surgical History History of fusion of cervical spine History of hemorrhoidectomy History of knee surgery Family History Family History Father Cerebrovascular accident Mother Cerebrovascular accident Cancer of kidney Sibling Chronic obstructive pulmonary disease Social History Social History Social History: Mr. Maya lives at home alone and his grandson stays with him frequently. He is independent in his daily activities. He works at the [employer]. His primary care provider is Mimi Coello NP. He has 2 daughters, Amelia and Chely, who he designates as his surrogate decision maker. He would like to be a full code. Smoking packs per day: 1 Smoking cigarettes per day: 20.0 Years smoked: 15 Smoking pack-years: 15.00 Smoking status: Former smoker Tobacco type: cigarettes Additional smoking assessment comments: recent covid pnuemonia Alcohol intake: current Drinks per week: 1 Substance use: never Spiritual care concerns: No Comments At time of signature, I have reviewed and agree with nursing past medical, surgical, social and family history unless otherwise noted. Please see nursing chart for further information. There is no relevant family history pertinent to the presenting complaint Exam Narrative: GENERAL: Well-appearing, well-nourished, and in no acute distress. HEAD: Normocephalic, atraumatic. EYES: EOMI. No redness or drainage. Conjunctivae normal. ENT: Mucous membranes pink and moist. NECK: Normal AROM. CHEST: No respiratory distress. EXTREMITIES: Normal range of motion. No edema. SKIN: Warm, dry. Capillary refill normal. Normal skin turgor. Scattered erythematous vesicular rash to the bilateral arms, chest, abdomen NEURO: No focal deficits. Alert and oriented x3. Gait steady. PSYCH: Normal affect. No signs of depression or anxiety. Course Course Level of Care: Express Care Visit Vital Signs Vital signs: Vital Signs Temperature 97.6 F 08/23/23 20:06 Pulse Rate 84 08/23/23 20:06 Respiratory Rate 16 08/23/23 20:06 Bloo
== END 2023-08-23 20:51 | disposition home or self-care (01) ==
PROVIDERS: Emergency Provider Nurse Practitioner
DX: L25.9 Unspecified contact dermatitis, unspecified cause (principal); I10 Essential (primary) hypertension; Z87.891 Personal history of nicotine dependence
CPT/HCPCS: 99213; G0463

== ENCOUNTER 2025-05-24 08:37 | Emergency (ER) | payer BC, SELFPAY ==
[2025-05-24] VITALS (14 sets, daily range): BP systolic 121–156; BP diastolic 76–103; PULSE 54–72; RESP 16–18; TEMP 36.8; O2SAT 93–98
--- NOTE | ~2025-05-24 | CT_ITS ---
History: Vertigo PROCEDURE: CT head without contrast. COMPARISON: 10/01/2022 TECHNIQUE: Axial imaging of the head performed from the skull base to the vertex without IV contrast. Sagittal a nd coronal reformations obtained. DLP: 605 mGy-cm FINDINGS: The ventricles are normal in size, shape and position. There is no mass, mass effect or midline shift. There is no abnormal extra-axial fluid collection or intracranial hemorrhage. Visualized paranasal sinuses are clear. The mastoid air cells are well aerated. No acute displaced fractures within the overlying cranium. Impression: No acute intracranial hemorrhage or suspicious mass effect. Reviewed, dictated and finalized at location A. Impression: No acute intracranial hemorrhage or suspicious mass effect.
--- NOTE | ~2025-05-24 | XR_ITS ---
CHEST RADIOGRAPH, PA AND LATERAL CLINICAL HISTORY: near syncope . COMPARISON: 07/10/2023 TECHNIQUE: PA and lateral views of the chest. FINDINGS The cardiomediastinal silhouette is unremarkable. Elevation of the right hemithorax with adjacent compressive atelectasis. Patchy opacification of the bilateral lung maldonado, right greater than left suggesting pulmonary edema . The remainder of the lungs are clear. IMPRESSION: Findings suggesting pulmonary edema, specifically within the right hemithorax. Reviewed, dictated and finalized at location A.
--- NOTE | 2025-05-24 08:45 | ECG_ITS ---
Test Date: 2025-05-24 08:40:51 Measurements Intervals Shafer Rate: 63 P: 86 MT: 239 QRS: -61 QRSD: 126 T: 10 QT: 404 QTc: 416 Interpretive Statements SINUS RHYTHM WITH FIRST DEGREE AV BLOCK LEFT ANTERIOR FASCICULAR BLOCK [QRS AXIS <= -45, QR IN I, RS IN II] No previous ECG available for comparison Electronically Signed On 05-24-2025 13:50:42 CDT by José Parmar M.D.
--- NOTE | 2025-05-24 09:01 | ED_ITS ---
HPI - General Adult General Chief complaint: Dizziness Stated complaint: dizzy x 2 days Time Seen by Provider: 05/24/25 08:38 History of Present Illness HPI narrative: 59-year-old male present to the emergency department for evaluation for dizziness. Patient states yesterday morning when he woke up he rolled over in the bed and had onset of dizziness. Patient states when he rolled to the left he had a spinning sensation and when he rolled to the right the sensation returned. Patient states he was able to lay in bed for a few hours and symptoms resolved. Patient denied any focal numbness or weakness. Patient states when he woke up this morning he had similar symptoms. Once again patient denies any focal numbness or weakness. Patient denies any falls or injuries. Patient does have history of cervical spine surgery but denies any radiculopathy symptoms. Patient denies any ear pain or congestion. Patient does have cough for the last few months. Patient was a smoker up until 2007. Related Data Home Medications ?Medication ?Instructions ?Recorded ?Confirmed ?Last Taken ?Type hydrochlorothiazide 12.5 mg tablet 12.5 mg PO DAILY 05/15/22 08/23/23 05/15/22 08:00 History Allergies Allergy/AdvReac Type Severity Reaction Status Date / Time No Known Allergies Allergy Verified 08/23/23 20:14 Review of Systems 2 Review of Systems: All systems reviewed & are unremarkable except as noted in HPI and below PMFSH Past Medical History Medical History Acid reflux Arthritis Heartburn Hypertension Pneumonia due to COVID-19 virus Surgical History Surgical History History of fusion of cervical spine History of hemorrhoidectomy History of knee surgery Family History Family History Father Cerebrovascular accident Mother Cerebrovascular accident Cancer of kidney Sibling Chronic obstructive pulmonary disease Social History Social History Social History: Mr. Maya lives at home alone and his grandson stays with him frequently. He is independent in his daily activities. He works at the [employer]. His primary care provider is Mimi Coello NP. He has 2 daughters, Amelia and Chely, who he designates as his surrogate decision maker. He would like to be a full code. Smoking packs per day: 1 Smoking cigarettes per day: 20.0 Years smoked: 15 Smoking pack-years: 15.00 Smoking status: Former smoker Tobacco type: cigarettes Additional smoking assessment comments: recent covid pnuemonia Alcohol intake: current Drinks per week: 1 Substance use: never Spiritual care concerns: No Exam 2 Narrative: APPEARANCE: Well appearing, no pain, no distress, well-nourished. HEAD: normocephalic, atraumatic. EYES: PERRLA/EOMI, conjunctivae clear. NOSE: Normal no drainage EARS:TMS clear with good light reflex. THROAT: Pharynx clear, no exudate. NECK: Supple. No adenopathy, no masses. RESPIRATORY: Airway patent, respirations nonlabored. Clear to auscultation bilaterally, no rales, rhonchi, wheezing. CARDIOVASCULAR: Regular rate and rhythm without murmurs rubs or gallops. ABDOMINAL: Soft, nontender, nondistended, normal bowel sounds MUSCULOSKELETAL: Moves all extremities. Strength/ROM intact, No edema, No calf tenderness. NEURO: Alert. Cranial nerves II through XII intact. Grossly intact SKIN: Warm, dry. Normal Color Course Vital Signs Vital signs: Vital Signs Pulse Rate 72 05/24/25 08:36 Respiratory Rate 18 05/24/25 08:36 Blood Pressure 156/103 H 05/24/25 08:36 Pulse Oximetry 98 05/24/25 08:36 Oxygen Delivery Room Air 05/24/25 08:36 Temperature 98.2 F 05/24/25 14:06 Pulse Rate 54 L 05/24/25 14:06 Respiratory Rate 16 05/24/25 14:06 Blood Pressure 126/82 05/24/25 14:06 Pulse Oximetry 96 05/24/25 14:06 Oxygen Delivery Room Air 05/24/25 08:36 Medical Decision Making MDM Narrative Medical decision making narrative: 59-year-old male presents emergency department for evaluation for vertigo and some lightheadedness. Patient is currently afebrile with no leukocytosis hemoglobin of 16.0. Patient has no acute abnormalities on his CMP patient was negative for influenza RSV and for COVID. Chest x-ray shows possible pulmonary edema, head CT was negative. Patient did feel some lightheadedness with ambulation but states that his dizziness has resolved after the meclizine. Patient was treated with a L of IV fluids and symptoms were further improved. Patient was provided meclizine for vertigo treatment for outpatient. All questions concerns were addressed patient was well-appearing at time of discharge. Differential Diagnosis Differential Diagnosis: Vertigo, lightheadedness, orthostatic hypotension, intracranial abnormality, pneumonia, COPD Vital Signs Vital Signs: Vital Signs Pulse Rate 72 05/24/25 08:36 Respiratory Rate 18 05/24/25 08:36 Blood Pressure 156/103 H 05/24/25 08:36 Pulse Oximetry 98 05/24/25 08:36 Oxygen Delivery Room Air 05/24/25 08:36 Temperature 98.2 F 05/24/25 14:06 Pulse Rate 54 L 05/24/25 14:06 Respiratory Rate 16 05/24/25 14:06 Blood Pressure 126/82 05/24/25 14:06 Pulse Oximetry 96 05/24/25 14:06 Oxygen Delivery Room Air 05/24/25 08:36 Lab Data Lab results reviewed: Yes I reviewed the patient's lab results. 05/24/25 09:09 05/24/25 09:09 Labs: Lab Results 05/24/25 05/24/25 Range/Units 09:09 09:35 WBC 9.8 (4.5-10.0) K/mm3 RBC 5.33 (4.6-6.20) M/mm3 Hgb 16.0 (14.0-18.0) g/dL Hct 46.1 (42.0-52.0) % MCV 86.5 (80-100) fl MCH 30.0 (26-34) pg MCHC 34.7 (32-36) g/dl RDW 12.6 (11.5-14.5) % Plt Count 226 (150-375) k/mm3 MPV 10.6 H (7.4-10.4) fl Immature Gran % (Auto) 0.8 H (0-0.5) % Neut % (Auto) 54.1 (45.5-73.1) % Lymph % (Auto) 29.6 (18.3-44.2) % [place] % (Auto) 7.7 (2.6-8.5) % Eos % (Auto) 6.9 H (0-4.4) % Baso % (Auto) 0.9 (0.2-1.2) % Lymph # (Auto) 2.90 (0.9-3.2) K/mm3 [place] # (Auto) 0.8 H (0.1-0.6) K/mm3 Eos # (Auto) 0.7 H (0-0.3) K/mm3 Baso # (Auto) 0.1 (0.0-0.1) K/mm3 Abs Immat Gran (auto) 0.08 H (0.00-0.031) K/mm3 Absolute Neuts (auto) 5.3 (1.3-6.7) K/mm3 Absolute Nucleated RBC 0.000 (0.0-0.012) K/mm3 Nucleated RBC % 0.0 (0.0-0.2) % Sodium 139 (137-145) mmol/L Potassium 3.7 (3.4-5.0) mmol/L Chloride 106 (98-107) mmol/L Carbon Dioxide 24 (22-30) mmol/L Anion Gap 9 (4-12) mmol/L BUN 18 (9-20) mg/dL Creatinine 0.90 (0.7-1.3) mg/dL Estim Creat Clear Calc 103 ml/min Estimated GFR > 60 (59 - ) Glucose 156 H (65-110) mg/dL Calcium 8.9 (8.4-10.2) mg/dL Total Bilirubin 0.8 (0.2-1.3) mg/dL AST 56 (17-59) U/L ALT 92 H (6-50) U/L Alkaline Phosphatase 77 (38-126) U/L Total Protein 7.4 (6.3-8.2) g/dL Albumin 4.2 (3.5-5.1) g/dL Influenza A (RT-PCR) Negative (Negative) Influenza B (RT-PCR) Negative (Negative) RSV (RT-PCR) Negative (Negative) SARS-CoV-2 RNA (RT-PCR) Negative (Negative) Imaging Data Radiologist's impression: Impressions Head CT 05/24/25 09:27 Impression: No acute intracranial hemorrhage or suspicious mass effect. Chest X-Ray 05/24/25 09:37 IMPRESSION: Findings suggesting pulmonary edema, specifically within the right hemithorax. Discharge Plan Discharge Clinical Impression: Dizziness Patient Disposition: Home Condition: Stable Instructions: Antibiotic Form, Vertigo (ED), Dizziness (ED) Additional Instructions: Meclizine as needed for vertigo control. Drink plenty of fluids. Have close follow-up with your primary care physician for additional outpatient testing. If you have any worsening symptoms then please call or return to the emergency department. Patient Language: Mongolian Prescriptions: New meclizine 25 mg tablet 25 mg PO BID PRN (Reason: dizziness) 7 Days Qty: 14 0RF No Action prednisone 10 mg tablet See Rx Instructions .ROUTE .COMPLEX Qty: 42 0RF Rx Instructions: 5 tabs daily x3 days,then 4 tabs daily x3 days,then 3 tabs daily x3 days,then 2 tabs daily x3 days hydrochlorothiazide 12.5 mg tablet 12.5 mg PO DAILY aspirin 81 mg capsule 81 mg PO DAILY Qty: 30 0RF Follow-up/Referrals: PHYSICIAN,NYLON WINDER [Primary Care Provider] -
[2025-05-24 09:14] LABS: Hematocrit 46.1 % (42.0-52.0); Hemoglobin 16.0 g/dL (14.0-18.0); Immature Granulocyte Percent A 0.8 % (0-0.5); Lymphocytes Absolute Auto 2.90 K/mm3 (0.9-3.2); Mean Corpuscular HGB Conc 34.7 g/dl (32-36); Mean Corpuscular Hemoglobin 30.0 pg (26-34); Mean Corpuscular Volume 86.5 fl (80-100); Nucleated Red Blood Cells Absolute Auto 0.000 K/mm3 (0.0-0.012); Nucleated Red Blood Cells Perc 0.0 % (0.0-0.2); Platelet Count Result 226 k/mm3 (150-375); Red Blood Count 5.33 M/mm3 (4.6-6.20); White Blood Count 9.8 K/mm3 (4.5-10.0)
[2025-05-24 09:24] LABS: Alanine Aminotransferase 92 U/L (6-50); Albumin Level 4.2 g/dL (3.5-5.1); Alkaline Phosphatase 77 U/L (38-126); Anion Gap 9 mmol/L (4-12); Aspartate Amino Transferase 56 U/L (17-59); Bilirubin,Total 0.8 mg/dL (0.2-1.3); Blood Urea Nitrogen 18 mg/dL (9-20); Calcium 8.9 mg/dL (8.4-10.2); Carbon Dioxide 24 mmol/L (22-30); Chloride 106 mmol/L (98-107); Estimated CRCL calculation 103 ml/min; Estimated Glomerular Filt Rate > 60; Glucose 156 mg/dL (65-110); Potassium 3.7 mmol/L (3.4-5.0); Sodium 139 mmol/L (137-145); Total Protein 7.4 g/dL (6.3-8.2)
[2025-05-24] MEDS: MECLIZINE HCL 25 MG TABLET PO (09:43)
--- OUTSIDE RECORDS SUMMARY | 2025-05-24 09:49 | XMS_ITS | Clinical Summary ---
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 Name Role Phone Agueda Pryor MD Primary Care Provider + Allergies No known active allergies Medications lisinopril (PRINIVIL,ZESTR IL) 10 mg tablet TK 1 T PO QD 12 7 Active metoprolol XL (TOPROL-XL) 50 mg 24 hr tablet TK 1 T PO QD 5 7 Active furosemide (LASIX) 20 mg tablet furosemide 20 mg tablet Active Active Problems Problem Noted Date Diagnosed Date Dietary counseling 10/16/2017 Exercise counseling 10/16/2017 Obesity (BMI 35.0-39.9 without comorbidity) 09/20 Dizziness 10/16/2017 Palpitations 10/16/2017 Medical History Medical History Date Comments Hypertension Dietary counseling 10/16/2017 Exercise counseling 10/16/2017 Obesity (BMI 35.0-39.9 without comorbidity) 09/20 Family History Medical History Relation Name Comments Aneurysm Father Stroke Mother Relation Name Status Comments Father Mother (Age 70) Social History Tobacco Use Types Packs/Day Years Used Date Smoking Tobacco: Former Cigarettes 1 12/16/1990 - 10/16/2008 Smokeless Tobacco: Never Personal Safety Answer Date Recorded Getting School Help Needed Not on file 02/01 Sex and Gender Information Value Date Recorded Sex Assigned at Not on file Legal Sex Male 4:33 PM [employer] Gender Identity Not on file Sexual Orientation Not on file Obstetrics History Last Filed Vital Signs Vital Sign Reading Time Taken Comments Blood Pressure 123/100 11/01/2020 3:47 AM [employer] Pulse 71 11/01/2020 3:47 AM [employer] Temperature 37.6 C (99.7 F) 10/31/2020 10:48 PM [employer] Respiratory Rate 17 10/31/2020 10:48 PM [employer] Oxygen Saturation 95% 11/01/2020 3:47 AM [employer] Inhaled Oxygen Concentration - - Weight 122.5 kg (270 lb) 10/31/2020 10:48 PM [employer] Height 185.4 cm (6' 1) 10/31/2020 10:48 PM [employer] Body Mass Index 35.62 10/31/2020 10:48 PM [employer] Plan of Treatment Not on file Insurance [employer] [place] [facility] Care Teams Artisan Plasterer Relationship Specialty Start Date End Date Agueda Pryor MD PCP - General Family Medicine 10/16/17
--- OUTSIDE RECORDS SUMMARY | 2025-05-24 09:49 | XMS_ITS | Referral Summary ---
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 Gender Identity Not on file Sexual Orientation Not on file Last Filed Vital Signs Vital Sign Reading Time Taken Comments Blood Pressure 123/100 11/01/2020 3:47 AM WATER QUALITY TESTER Pulse 71 11/01/2020 3:47 AM WATER QUALITY TESTER Temperature 37.6 C (99.7 F) 10/31/2020 10:48 PM WATER QUALITY TESTER Respiratory Rate 17 10/31/2020 10:48 PM WATER QUALITY TESTER Oxygen Saturation 95% 11/01/2020 3:47 AM WATER QUALITY TESTER Inhaled Oxygen Concentration - - Weight 122.5 kg (270 lb) 10/31/2020 10:48 PM WATER QUALITY TESTER Height 185.4 cm (6' 1) 10/31/2020 10:48 PM WATER QUALITY TESTER Body Mass Index 35.62 10/31/2020 10:48 PM WATER QUALITY TESTER Plan of Treatment Not on file [facility] Care Teams Blue Print Control Clerk Relationship Specialty Start Date End Date Agueda Pryor MD PCP - General Family Medicine 10/16/17
--- OUTSIDE RECORDS SUMMARY | 2025-05-24 09:49 | XMS_ITS | Clinical Summary ---
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 04/14/20 21 Active torsemide (DEMADEX) 10 MG tablet Take 1 tablet (10 mg total) by mouth daily. PLEASE KEEP UPCOMING APPOINTMENT 30 tablet 05/18/20 25 Active torsemide (DEMADEX) 10 MG tablet Take 1 tablet (10 mg total) by mouth daily. PLEASE CALL OFFICE TO SCHEDULE AN APPOINTMENT 30 tablet 03/09/20 25 025 Discontinued Active Problems Problem Noted Date Diagnosed Date Dyspnea 05/15/2023 Hyperglycemia 08/12/2021 Hypertensive disorder 07/19/2021 Pulmonary edema ([facility]) 12/30/2020 COVID-19 10/19/2020 Congestive heart failure ([facility]) 07/16 Dizziness 10/16/2017 Obesity (BMI 35.0-39.9 without comorbidity) 09/20 Palpitations 10/16/2017 Hyperlipidemia Family History Medical History Relation Comments Stroke Father Stroke Mother Relation Status Comments Father (Age 66) Mother (Age 74) Social History Tobacco Use Types Packs/Day Years Used Date Smoking Tobacco: Former Cigarettes Q uit: 2008 Smokeless Tobacco: Never Tobacco Cessation:Counseling Given: Not Answered Alcohol Use Standard Drinks/Week Comments Yes 0 (1 standard drink = 0.6 oz pur e alcohol) Sex and Gender Information Value Date Recorded Sex Assigned at Not on file Legal 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 Gender Identity Not on file Sexual Orientation Not on file 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 on file Not on file Not on file Last Filed Vital Signs Vital Sign Reading Time Taken Comments Blood Pressure 132/82 02/12/2024 9:27 AM CDT Pulse 66 02/12/2024 9:27 AM CDT Temperature - - Respiratory Rate - - Oxygen Saturation 96% 02/12/2024 9:27 AM CDT Inhaled Oxygen Concentration - - Weight 129.3 kg (285 lb) 02/12/2024 9:27 AM CDT Height 185.4 cm (6' 1) 02/12/2024 9:27 AM CDT Body Mass Index 37.6 02/12/2024 9:27 AM CDT Plan of Treatment Upcoming Encounters Date Type Department Care Team (Late st Contact Info) Description 05/27/2025 12:45 PM CDT Office Visit [facility] [address] [place] [address] Johnathan Tello MD Three [facility]. [address] [place], [place] [id number] Health Maintenance Due Date Last Done Comments Colorectal Cancer Screening Colonoscopy (10 Years) 1964 Annual Physical 1967 Hepatitis C 1982 DTaP, Tdap and Td Vaccines ( 1 - Tdap) 1983 Pneumococcal Vaccine: 50+ Ye ars (1 of 2 - PCV) 1983 Zoster Vaccines (1 of 2) 2014 RSV Immunization or 60+ Years (1 - Risk 60-74 years 1-dose series) 2024 COVID-19 Vaccine (1 - 2023-2 5 season) 2024 PHQ-2 (Physician [place]) 11/19/2024 Meningococcal B Vaccine Aged Out No l onger eligible based on patient's age to complete this topic Meningococcal Vaccine Aged Out No trevor kevin eligible based on patient's age to complete this topic RSV Immunizations Under 20 Months Aged Out No longer eligible based on patient's age to complete this topic Insurance [facility] Care Teams Concrete Sculptor Relationship Specialty Start Date End Date Agueda Pryor MD [address] [place] [address] PCP - General FAMILY PRACTICE 05/19/23
--- OUTSIDE RECORDS SUMMARY | 2025-05-24 09:49 | XMS_ITS | Data Portability ---
Author Organization [facility], Main Office Address [address] [place] [address] Assessment No assessment recorded. Plan of Treatment Reminders Order Date Submit Date Provider Last Modified By Organization Details Last Modified Time Details Appointments None recorded. Lab CMP, serum or plasma [address] (Lab), [address] [place], [address], 3 09:30:17 HbA1c (hemoglobin A1c), blood [address] (Lab), [address] [place], [address], 3 11:22:17 CBC 2022 023 [facility] (Lab), [address] [place], [address], 3 21:22:01 lipid panel, serum [address] (Lab), [address] [place], [address], 3 09:28:[address] referral 2022 023 [email or web address] 3 Ruben Kaufman MD, [address] [place], [address], 3 08:49:01 Procedures None recorded. Surgeries None recorded. Imaging None recorded. Medication Orders Paxlovid 300 mg (150 mg x 2)-100 mg tablets in a dose pack 2022 023 DAPHNIE [facility] #[id number], [address], [place], [place], [id number], 17:40:38 ondansetron 8 mg disintegrat ing tablet 2022 023 [email or web address] 1 [facility] #[id number], [address], [place], [place], [id number], 09:07:35 Patient TargetsNo targets recorded. Patient InstructionsNo instructions recorded. 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 Referring Physician: Su Alaniz, Family Medicine, Encounter Date: 05/15/2023 Results Created Date Observation Date Name Description Value Unit Range Abnormal Flag Note LastModifiedBy Organization Detail LastModifiedTime 05/15/2005/15/2023 CBC W/O DIFFE RENTI AL white blood cells 9.5 x10'3 /uL 4.2-10 .8 Not Available [facility] (Lab) [address] [place], [address], 05/15/2023 21:22:01 05/15/20 23 05/15/2023 CBC W/O DIFFE RENTI AL red blood cells 5.44 x10'6 /uL 4.10-5 .80 Not Available [facility] (Lab) [address] [place], [address], 05/15/2023 21:22:01 05/15/20 23 05/15/2023 CBC W/O DIFFE RENTI AL hemoglobin 16.0 g/dL 13.2-1 7.0 Not Available [facility] (Lab) [address] [place], [address], 05/15/2023 21:22:01 05/15/20 23 05/15/2023 CBC W/O DIFFE RENTI AL hematocrit 47.3 % 39.3-5 0.0 Not Available [facility] (Lab) [address] [place], [address], 05/15/2023 21:22:01 05/15/20 23 05/15/2023 CBC W/O DIFFE RENTI AL mean red cell volume 86.9 fL 80.0-9 7.0 Not Available [facility] (Lab) [address] [place], [address], 05/15/2023 21:22:01 05/15/20 23 05/15/2023 CBC W/O DIFFE RENTI AL mean red cell hemoglobin 29.4 pg 27.0-3 3.0 Not Available [facility] (Lab) [address] [place], [address], 05/15/2023 21:22:01 05/15/20 23 05/15/2023 CBC W/O DIFFE RENTI AL mean RBC HGB concentratio n 33.8 g/dL 31.0-3 6.0 Not Available [facility] (Lab) [address] [place], [address], 05/15/2023 21:22:01 05/15/20 23 05/15/2023 CBC W/O DIFFE RENTI AL red cell distribution width 12.6 % 11.8-1 5.5 Not Available [facility] (Lab) [address] [place], [address], 05/15/2023 21:22:01 05/15/20 23 05/15/2023 CBC W/O DIFFE RENTI AL platelets 242 x10'3 /uL 150-40 0 Not Available [facility] (Lab) [address] [place], [address], 05/15/2023 21:22:01 05/15/20 23 05/15/2023 CBC W/O DIFFE RENTI AL mean platelet volume 11.4 fL 9.0-12 .4 Not Available [facility] (Lab) [address] [place], [address], 05/15/2023 21:22:01 05/15/20 23 05/15/2023 LIPID PANEL cholesterol 217 mg/dL 140-19 9 high NIH JESSICA NSUS RECOM MENDA TION FOR SHAMA STERO L: ADULT CHILD LOW RISK: <200 <170 BORDE RLINE : <200- 239 ----- HIGH RISK: >240 >200 Not Available [facility] (Lab) [address] [place], [address], 05/15/2023 21:46:29 05/15/20 23 05/15/2023 LIPID PANEL triglyceride s 101 mg/dL 0-150 NIH JESSICA NSUS REPOR T RECOM MENDA TION FOR TRIGL YCERI HORTENSIA: ADULT CHILD LOW RISK: <150 ----- BODER LINE: 150-1 99 ----- HIGH RISK: >200 ----- Not Available [facility] (Lab) [address] [place], [address], 05/15/2023 21:46:29 05/15/20 23 05/15/2023 LIPID PANEL HDL cholesterol 47 mg/dL 40- Not Available [facility] (Lab) [address] [place], [address], 05/15/2023 21:46:29 05/15/20 23 05/15/2023 LIPID PANEL LDL cholesterol, calculated 150 mg/dL 0-130 high NIH JESSICA NSUS REPOR T RECOM MENDA TIONS FOR LDL: ADULT CHILD LOW RISK <130 <110 (OPTI MAL LDL) <100 ----- BORDE RLINE : 130-1 59 ----- HIGH RISK: >160 >130 A TRIGL YCERI DE RESUL T >400 INVAL IDATE S THE CALCU LATIO N FOR LDL FRACT IONAT ION - THE LDL RESUL T WILL NOT BE REPOR KELSEY. Not Available [facility] (Lab) [address] [place], [address], 05/15/2023 21:46:29 05/15/20 23 05/15/2023 COMPR EHENS BEE METAB OLIC PANEL sodium 139 mmol/ L 137-14 5 Not Available [facility] (Lab) [address] [place], [address], 05/15/2023 21:46:49 05/15/20 23 05/15/2023 COMPR EHENS BEE METAB OLIC PANEL potassium 4.0 mmol/ L 3.5-5. 1 Not Available [facility] (Lab) [address] [place], [address], 05/15/2023 21:46:49 05/15/20 23 05/15/2023 COMPR EHENS BEE METAB OLIC PANEL chloride 103 mmol/ L 98-107 Not Available [facility] (Lab) [address] [place], [address], 05/15/2023 21:46:49 05/15/20 23 05/15/2023 COMPR EHENS BEE METAB OLIC PANEL carbon dioxide 27 mmol/ L 22-30 Not Available [facility] (Lab) [address] [place], [address], 05/15/2023 21:46:49 05/15/20 23 05/15/2023 COMPR EHENS BEE METAB OLIC PANEL anion gap 13.0 mmol/ L 14-22 low Not Available [facility] (Lab) [address] [place], [address], 05/15/2023 21:46:49 05/15/20 23 05/15/2023 COMPR EHENS BEE METAB OLIC PANEL glucose 108 mg/dL 70-99 high Not Available [facility] (Lab) [address] [place], [address], 05/15/2023 21:46:49 05/15/20 23 05/15/2023 COMPR EHENS BEE METAB OLIC PANEL BUN 22 mg/dL 8-19 high Not Available [facility] (Lab) [address] [place], [address], 05/15/2023 21:46:49 05/15/20 23 05/15/2023 COMPR EHENS BEE METAB OLIC PANEL creatinine 0.92 mg/dL 0.66-1 .25 Not Available [facility] (Lab) [address] [place], [address], 05/15/2023 21:46:49 05/15/20 23 05/15/2023 COMPR EHENS BEE METAB OLIC PANEL GFR >60 Refer ence Range : Talmage ge GFR Healt hy Adult : >60 mL/mi n/1.7 3 m2 Chron ic Kidne y Disea se: 15-60 mL/mi n/1.7 3 m2 Kidne y Failu re: <15/m L/min /1.73 m2 www.n iddk. nih.g ov The MDRD study equat ion has not been valid ated in child lilia <18 years of age; pregn ant women ; the elder ly >85 years of age; or in some racia l or ethni c subgr oups, such as Hisnh nics. Outsi de the valid ated niurka eters , estim ated GFR is less accur ate, requi ring clini jerilyn judgm ent on a case- by-ca se basis . Clini jerilyn inter preta tion for other races and ages must be made by the clini yolanda. The MDRD study equat ion has not been valid ated for the evalu ation of serum creat inine relat ed to nutri loyda l statu s or medic ation usage . For perso ns <18 years of age, a pedia tric GFR calcu lator is avail able on the F websi te: https ://jorge viveros.o rg/pr ofess ional s/kdo qi/gf r_cal culat or Not Available [facility] (Lab) [address] [place], [address], 05/15/2023 21:46:49 05/15/20 23 05/15/2023 COMPR EHENS BEE METAB OLIC PANEL alkaline phosphatase 64 U/L 38-[address] [facility] (Lab) [address] [place], [address], 05/15/2023 21:46:49 05/15/20 23 05/15/2023 COMPR EHENS BEE METAB OLIC PANEL alanine aminotransfe rase 84 U/L 0-50 high Not Available [facility] (Lab) [address] [place], [address], 05/15/2023 21:46:49 05/15/20 23 05/15/2023 COMPR EHENS BEE METAB OLIC PANEL aspartate aminotransfe rase 60 U/L 15-46 high Not Available [facility] (Lab) [address] [place], [address], 05/15/2023 21:46:49 05/15/20 23 05/15/2023 COMPR EHENS BEE METAB OLIC PANEL bilirubin, total 1.40 mg/dL 0.20-1 .30 high Not Available [facility] (Lab) [address] [place], [address], 05/15/2023 21:46:49 05/15/20 23 05/15/2023 COMPR EHENS BEE METAB OLIC PANEL calcium 9.4 mg/dL 8.4-10 .2 Not Available [facility] (Lab) [address] [place], [address], 05/15/2023 21:46:49 05/15/20 23 05/15/2023 COMPR EHENS BEE METAB OLIC PANEL total protein 7.6 g/dL 6.3-8. 2 Not Available [facility] (Lab) [address] [place], [address], 05/15/2023 21:46:49 05/15/20 23 05/15/2023 COMPR EHENS BEE METAB OLIC PANEL albumin 4.6 g/dL 3.4-5. 0 Not Available [facility] (Lab) [address] [place], [address], 05/15/2023 21:46:49 05/15/20 23 05/15/2023 COMPR EHENS BEE METAB OLIC PANEL globulin 3.0 g/dL 2.6-4. 2 Not Available [facility] (Lab) [address] [place], [address], 05/15/2023 21:46:49 05/15/20 23 05/15/2023 COMPR EHENS BEE METAB OLIC PANEL A/G ratio 1.5 ratio 1.0-2. 0 Not Available [facility] (Lab) [address] [place], [address], 05/15/2023 21:46:49 05/15/20 23 05/15/2023 HEMOG LOBIN A1C HA1C 6.2 % 4.0-6. 0 high Diabe gissell Scree isauro Crite ewelina: <5.7% Consi stent with absen ce of diabe gissell 5.7-6 .4% Consi stent with incre ased risk for diabe gissell (pred iabet es) >OR=6 .5% Consi stent with diabe gissell REFER ENCE: Diabe gissell Care 2016, 39(Morrell ppl.1 ):s13 -s22 Not Available [facility] (Lab) [address] [place], [address], 05/15/2023 22:03:17 04/08/20 22 04/08/2022 US, tiago x, leti s, lower extre mity No observ ation record ed. [id number], [place], [address], 01/17/2023 15:55:26 05/16/20 22 05/15/2022 CT, angio gram, head + neck, w/wo contr ast No observ ation record ed. MIGRATION.[id number] [place] [address] [address], [place], [address], 01/17/2023 15:55:26 05/16/20 22 05/15/2022 XR, chest , 2 view No observ ation record ed. MIGRATION.[id number] [place] [address], [place], [address], 01/17/2023 15:55:26 05/16/20 22 05/16/2022 MRI, brain + brain stem, w/o contr ast No observ ation record ed. MIGRATION.[id number] [place] [address], [place], [address], 01/17/2023 15:55:26 05/17/20 22 05/16/2022 CT, head + brain , w/o contr ast No observ ation record ed. MIGRATION.[id number] [place] [address], [place], [address], 01/17/2023 15:55:26 10/02/20 22 10/01/2022 XR, cervi jerilyn spine No observ ation record ed. MIGRATION.[address] [place] [address], [place], [address], 01/17/2023 15:55:26 10/02/20 22 10/01/2022 imagi ng/di agnos tic resul t No observ ation record ed. MIGRATION.[id number] [place] [address], [place], [address], 01/17/2023 15:55:26 10/02/20 22 10/01/2022 imagi ng/di agnos tic resul t No observ ation record ed. MIGRATION.[id number] [place] [address], [place], [address], 01/17/2023 15:55:26 05/12/20 23 05/12/2023 XR, chest No observ ation record ed. [email or web address] [place] [address], [place], [address], 05/15/2023 08:25:48 07/10/20 23 07/10/2023 XR, chest No observ ation record ed. [email or web address] [facility] [address], [place], [address], 11/07/2023 12:06:44 09/06/20 23 08/24/2023 PFT, compl ete No observ ation record ed. [email or web address] [address] , [place], [address], 11/07/2023 12:11:17 11/07/20 23 10/04/2023 home sleep study No observ ation record ed. [email or web address] [facility] [address], [place], [address], 11/07/2023 12:05:20 Result Notes None recorded. Problems Name Problem SNOMED Code Status Onset Date Resolution Date Notes Provider Name and Address Organization Details Recorded Time Induratio n penis plastica 1563323 Completed Not Available [facility] 3 15:54:31 Capsuliti s of metatarso phalangea l joint of right foot 39974622471 104125 Active 2018 Not Available [facility] 3 15:54:31 Pulmonary edema 35214795 Active 2020 [facility] Available [facility] 3 15:54:31 Gastroeso phageal reflux disease 210131103 Active Not Available [facility] 3 15:54:31 Low back pain 302171391 Active Not Available [facility] 3 15:54:31 Low back strain 250484085 Completed Not Available [facility] 3 15:54:31 Knee pain Completed Not Available [facility] 3 15:54:31 Bronchiti s 54017595 Completed Not Available [facility] 3 15:54:31 Hypertens bee disorder 79050926 Active 2020 Not Available [facility] 3 15:54:31 Pharyngit is 330032745 Completed Not Available [facility] 3 15:54:31 Obesity 935107094 Active 2020 Not Available [facility] 3 15:54:31 Congestiv e heart failure 83629904 Completed 201912/30/2020 Not Available [facility] 3 15:54:31 Sprain of ankle 12097342 Completed Not Available [facility] 3 15:54:31 Cough 13801042 Completed Not Available [facility] 3 15:54:31 Hyperlipi demia 77533757 Active 2018 Not Available [facility] 3 15:54:31 Pain of joint 42499157 Completed Not Available [facility] 3 15:54:32 Influenza 0141767 Completed Not Available [facility] 3 15:54:32 Hyperglyc emia 66066910 Active Not Available [facility] 3 15:54:32 Viral syndrome 147759139 Active 2022 RACHNA Villafuerte [address], [address], [address] , [employer] [facility] 3 08:41:42 Dyspnea 878660144 Active 2022 RACHNA Villafuerte [address], [place] [address], [place], [address] , [employer] [facility] 3 08:47:00 Upper respirato ry infection 37760254 Active 2022 MASTER Moseley [address], [place] [address], [place], [address] , [employer] [facility] 3 16:11:36 Notes:Some problems listed i n Document: #[id number] could not be added to this patient's chart. Please review this document and add these problems to the patient's chart manually as needed. Problem Notes None recorded. Procedures Surgical History Date Name Laterality Status Provider Name and Address Organization Details Recorded Time other completed Not Available [facility] 11/2022 15:53:45 Orthopedic Surgery completed Not Available [facility] 01/17/2023 15:53:45 Cardiovascular Procedure completed Not Available [facility] 01/17/2023 15:53:45 other completed Not Available [facility] 11/2022 15:53:45 Imaging Results None recorded. Procedure Notes None recorded. Medical Equipment None Reported. Allergies No known drug allergies Medications Name Sig Start Date Stop Date Status Note LastModified by Organization Details LastModified Time amoxicillin 500 mg capsule TK 1 C PO Q 12 H FOR 10 DAYS 03/30 completed Not Available Not Available Not Available methocarbam ol 500 mg tablet TAKE 1 TABLET BY MOUTH THREE TIMES DAILY NEEDED FOR MUSCLE SPASM 05/15 completed Not Available Not Available Not Available Colace 100 mg capsule Take 1 capsule every day by oral route. 03/04 completed Not Available Not Available Not Available azithromyci n 250 mg tablet TK 2 TS PO ON DAY 1, THEN TK 1 T PO D FOR 4 DAYS 06/05 completed Not Available Not Available Not Available ibuprofen 800 mg tablet TAKE 1 TABLET BY MOUTH THREE TIMES DAILY NEEDED FOR PAIN 05/15 completed Not Available Not Available Not Available benzonatate 200 mg capsule TAKE 1 CAPSULE BY MOUTH THREE TIMES DAILY 05/15 completed Not Available Not Available Not Available metoprolol succinate ER 50 mg tablet,exte nded release 24 hr TAKE 1 TABLET BY MOUTH EVERY DAY 04/14 completed Not Available Not Available Not Available hydrocodone 5 mg-acetamin ophen 325 mg tablet 03/20 completed Not Available Not Available Not Available ondansetron HCl 4 mg tablet TAKE 1 TABLET BY MOUTH EVERY 8 HOURS NEEDED 05/15 completed Not Available Not Available Not Available prednisone 20 mg tablet TAKE 3 TABLETS BY MOUTH EVERY DAY FOR 5 DAYS 05/15 completed Not Available Not Available Not Available torsemide 10 mg tablet active Not Available Not Available Not Available penicillin V potassium 500 mg tablet TAKE 1 TABLET BY MOUTH FOUR TIMES DAILY UNTIL ALL TAKEN 04/14 completed Not Available Not Available Not Available amoxicillin 500 mg tablet TAKE 1 TABLET BY MOUTH TWICE DAILY 05/15 completed Not Available Not Available Not Available ondansetron 8 mg disintegrat ing tablet DISSOLVE 1 TABLET ON THE TONGUE TWICE DAILY NEEDED active Not Available Not Available No t Available hydrocortis one 2.5 % topical cream with perineal applicator APPLY A THIN LAYER TO THE AFFECTED AREA(S) BY TOPICAL ROUTE 2-4 TIMESDAIL Y 02/19 completed Not Available Not Available Not Available amoxicillin 875 mg tablet TK 1 T PO Q 12 H FOR 10 DAYS 02/19 completed Not Available Not Available Not Available famotidine 20 mg tablet TK 1 T PO BID 08/09 completed Not Available Not Available Not Available meclizine 25 mg tablet Take 1 tablet 3 times a day by oral route as needed for 30 days. 07/24 completed Not Available Not Available Not Available benzonatate 100 mg capsule active Not Available Not Available Not Available ranitidine 150 mg tablet Take 1 tablet twice a day by oral route as needed. active Not Available Not Available No t Available buspirone 10 mg tablet Take 1 tablet twice a day by oral route for 30 days. active Not Available Not Available No t Available lisinopril 10 mg tablet TK 1 T PO QD 02/19 completed Not Available Not Available Not Available prednisone 50 mg tablet active Not Available Not Available Not Available nitroglycer in 0.4 mg sublingual tablet DISSOLVE 1 TABLET UNDER THE TONGUE EVERY 5 MINUTES NEEDED FOR CHEST PAIN. MAXIMUM OF 3 DOSES. active Not Available Not Available No t Available diclofenac sodium 75 mg tablet,hector yed release Take 1 tablet twice a day by oral route. active Not Available Not Available No t Available hydrocodone 5 mg-acetamin ophen 500 mg tablet 03/20 completed Not Available Not Available Not Available codeine 10 mg-guaifene sin 100 mg/5 mL oral liquid TAKE 10 ML BY MOUTH EVERY 8 HOURS NEEDED 06/05 completed Not Available Not Available Not Available furosemide 20 mg tablet TAKE 1 TABLET BY MOUTH EVERY DAY 04/14 completed Not Available Not Available Not Available methylpredn isolone 4 mg tablets in a dose pack FOLLOW PACKAGE DIRECTION S 05/15 completed Not Available Not Available Not Available albuterol sulfate HFA 90 mcg/actuati on aerosol inhaler INHALE 1 PUFF BY MOUTH EVERY 6 TO 8 HOURS NEEDED FOR SHORTNESS OF BREATH OR WHEEZING active Not Available Not Available No t Available ondansetron 4 mg disintegrat ing tablet Place 1 tablet every 6-8 hours by transling ual route as needed for 5 days. 05/15 completed Not Available Not Available Not Available doxycycline hyclate 100 mg tablet TAKE 1 TABLET BY MOUTH TWICE DAILY FOR 7 DAYS 05/15 completed Not Available Not Available Not Available amoxicillin 875 mg-elma m clavulanate 125 mg tablet TK 1 T PO Q 12 H FOR 10 DAYS 07/08 completed Not Available Not Available Not Available naproxen 375 mg tablet,hector yed release TK 1 T PO BID active Not Available Not Available No t Available cyclobenzap rine 5 mg tablet Take 1 tablet(s) 3 times a day by oral route as needed, may cause drowsines s active Not Available Not Available No t Available hydrochloro thiazide 12.5 mg tablet active Not Available Not Available Not Available Paxlovid 300 mg (150 mg x 2)-100 mg tablets in a dose pack Take 1 dose pk by oral route. 2022 active Not Available Not Available Not Avai lable Vitals Date Recorded Body mass index (BMI) Body height Oxygen saturation Oxygen saturation in Arterial blood by Pulse oximetry Heart rate Body temperature Body weight Systolic And Diastolic Provider Name and Address Organization Details Last Updated DateTime 2 36.1 kg/m2 185.42 cm 99 % 99 % 61 /min 97 [degF] 007592. 31 g 126/84 mm[Hg] Not Available [facility] 3 15:54:03 Date Recorded Body mass index (BMI) Body height Oxygen saturation Oxygen saturation in Arterial blood by Pulse oximetry Heart rate Body temperature Body weight Systolic And Diastolic Provider Name and Address Organization Details Last Updated DateTime 2 36.5 kg/m2 185.42 cm 99 % 99 % 73 /min 96.8 [degF] 590000. 09 g 124/82 mm[Hg] Not Available [facility] 3 15:54:03 Date Recorded Body height Body mass index (BMI) Body weight Body temperature Heart rate Oxygen saturation Oxygen saturation in Arterial blood by Pulse oximetry Systolic And Diastolic Provider Name and Address Organization Details Last Updated DateTime 3 185.42 cm 36.7 kg/m2 253458. 68 g 97.6 [degF] 72 /min 97 % 97 % 124/82 mm[Hg] Alta daniel, [facility] [employer] 3 08:20:50 Date Recorded Body mass index (BMI) Body height Oxygen saturation Oxygen saturation in Arterial blood by Pulse oximetry Heart rate Body temperature Body weight Systolic And Diastolic Provider Name and Address Organization Details Last Updated DateTime 2 36 kg/m2 185.42 cm 95 % 95 % 82 /min 96.4 [degF] 121418. 72 g 122/82 mm[Hg] Not Available [facility] 3 15:54:03 Date Recorded Body height Body mass index (BMI) Body weight Body temperature Heart rate Oxygen saturation Oxygen saturation in Arterial blood by Pulse oximetry Systolic And Diastolic Provider Name and Address Organization Details Last Updated DateTime 3 185.42 cm 36.3 kg/m2 244204. 9 g 98.6 [degF] 86 /min 98 % 98 % 140/82 mm[Hg] Sandy Ulloa LPN [employer] 3 16:03:02 Social History Question Answer Notes LastModified by [email or web address] Details LastModified Time Tobacco Smoking Status Former Smoker quit 4-5 yrs ago Not Available [facility] 01/17/2023 15:53:39 In The 14 Days Before Symptom Onset, Have You Had Close Contact With A Laboratory-confirm ed COVID-19 While That Case Was Ill? No [id number] Information not available 01/17/2023 In The 14 Days Before Symptom Onset, Have You Had Close Contact With A Person Who Is Under Investigation For COVID-19 While That Person Was Ill? No [id number] Information not available 01/17/2023 What Was The Date Of Your Most Recent Tobacco Screening? 03/04/2019 [id number] Information not available 01/17/2023 Sex: Unknown Functional Status Question Answer Note LastModified by [email or web address] Details LastModified Time What is your level of alcohol consumption? Occasional [id number] Information not available 01/17/2023 Mental Status None recorded. Family History Relationship Description Onset Age of this Age Resolved Age Notes LastModified by Organization Details LastModified Time Father Cerebrovascu lar accident 65 [id number] Not available 01/17/2023 15:53:45 Mother Primary malignant neoplasm of kidney [id number] Not available 01/17/2023 15:53:45 Medical History Condition Response HEARTBURN / REFLUX Y Past Encounters Encounter ID Performer Location Encounter Start Date Encounter Closed Date Diagnosis/Indication Diagnosis SNOMED-CT Code Diagnosis ICD10 Code Diagnosis Note [id number] Annabelle Damon MD [facility] [place] [address] , [place] [id number] 04/07/2021 00:00:00 04/08/2021 06:23:04 [id number] S_Histor ic[facility] [place] [address] , [place] [id number] 04/14/2021 00:00:00 04/14/2021 15:53:08 [id number] FARHANA Dutton [facility] [place] [address] [place] [address] 04/26/2021 00:00:00 04/26/2021 13:40:03 [id number] Annabelle Damon MD [facility] [place] [address] , [place] [address] 05/02/2021 00:00:00 05/02/2021 16:58:38 [id number] Dipak Elena MD [address] [address] [place] [address] 07/19/2021 00:00:00 07/19/2021 16:56:36 [id number] S_Histor ic_Gateway [facility] [place] [address] [place] [address] 01/11/2022 00:00:00 01/12/2022 08:21:52 [id number] Annabelle Damon MD [facility] [place] [address] , [place] [address] 02/13/2022 00:00:00 02/13/2022 12:53:36 [id number] Annabelle Damon MD [facility] [place] [address] [facility] [place] [address] 04/12/2022 00:00:00 04/12/2022 09:33:17 [id number] Annabelle Damon MD [facility] [place] [address] [facility] [place] [address] 06/05/2022 00:00:00 06/05/2022 16:07:42 [id number] Agueda Pryor MD [facility] [address] [facility] [place] [address] 05/15/2023 08:12:30 05/15/2023 08:59:45 Hyperlipidemia [id number] E78.5 Viral syndrome [id number] B34.9 Symptoms improving, still some nausea. No vomiting or diarrhea. No fevers.Adv ised to take medication s as needed. Stick to bland diet until symptoms improved.R equesting to update lab work. Hyperglycemia [id number] R 73.9 Dyspnea [id number] R06.00 ER visit 05/12/23 for potential pneumonia/ possible COPD exacerbati on. Pt. states he has never been formally diagnosed with COPD but does have smoking history. He did have covid pneumonia previously which he followed with pulmonolog y after and was advised to continue f/u in the future to determine resolution of symptoms.W ill send referral to pulmonolog ist for further evaluation . Continue albuterol inhaler as needed. [id number] MASTER Moseley [facility] [address] [place] [address] 07/11/2023 15:54:12 07/11/2023 16:43:38 Upper respiratory infection [id number] J06.9 possibly covid-unva xxedTreate d with prednisone and benzonatat e per Ulises symptoms [id number] 98% on RA currentlyW ill add antibiotic if no improvemen t within 10 daysEncour aged to increase fluid intakeTria hector Olivo f/u as needed Health Concerns Section Related Observation LastModified by Organization Detai ls LastModified Time None Recorded Concern Status LastModified by Organization Details LastModified Time None Recorded Advance Directives Directive None Recorded Payers Insurance Date Sequence Insurance Name Policy Number Policy Ware Covered Member ID Ware Member ID Guarantor Name 12/15/2024 1 [facility] (O) [id number] Ru Gallegos [id number] Ru Gallegos 12/15/2024 [facility] Ru Gallegos SELF SELF Ru Gallegos 05/15/2023 1 [facility] (O) [id number] Ru Gallegos [id number] Ru Gallegos Notes Date Note Type Note Provider Name and Address Organization Details Recorded Time 05/15/2023 text/html Pt. here to establish care, transferring from [facility].He was seen in the ER 05/12/23 for cough, SOB, DIAZ, nausea. CXR normal. He was treated for potential pneumonia/COPD exacerbation and advised to f/u with pulmonology. He did have covid pneumonia previously. Given albuterol and doxycyline at discharge. He states his symptoms have improved, still notices a little bit of shortness of breath but cough has gotten better. Still some dizziness and nausea. RACHNA Villafuerte [address], [place], [address], [place] 05/15/2023 09:11:14 07/11/2023 text/html Pt is here with c/o cough that started 1 days ago. Grandson was recently diagnosed with covid 2 days ago. Started having cold chills, headache, nausea, cough, back pain. Went to Urgent care yesterday and was tested for covid (negative). Given prednisone and benzonatate. Started having cold chills, headache, nausea, cough, back pain. MASTER Moseley [address], [place], [address], [place] 07/11/2023 17:40:57
--- OUTSIDE RECORDS SUMMARY | 2025-05-24 09:49 | XMS_ITS | Continuity of Care Document ---
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 [address] [place], [address], [place]. tel: [phone] Family History Family Member Type Diagnosis Age At Onset No Information Payers Payer name Insurance type Covered libertarian ID Authoriza magalicalvin(s) Jasmyn Weber [employer] [id number] Social History Type Description Quantity Date Captured Comments Sex Male Smoking Status No Information Chief Complaint And Reason For Visit No Information Reason For Referral Reason For Referral No Information History Of Present Illness Encounter Date Complaint History Of Prese nt Illness No Information Functional Status Date Functional Assessmen t No Information Instructions Date Instruction Additional Infor mation No Information Assessments Type Assessment Date No Information Patient Care Teams Name Effective Dates (start - stop) Status Members No Information
--- OUTSIDE RECORDS SUMMARY | 2025-05-24 09:49 | XMS_ITS | Encounter Summary ---
Author Organization [facility] Address [address] [place] [address] Care Team Providers Care Facilities Clerk Name Role Phone Mimi Coello NP Primary Care Provider [phone] Agueda Pryor MD Primary Care Provider [phone] Encounter Details Date Type Department Care Team ([facility] Contact Info) Description 08/25/2021 Abstract [facility] [address] [address] Alejandra Mcintosh MA Social History Tobacco Use Types Packs/Day Years Used Date Smoking Tobacco: Former Cigarettes Q uit: 2009 Smokeless Tobacco: Never Alcohol Use Standard Drinks/Week Comments Yes 0 (1 standard drink = 0.6 oz pur e alcohol) Sex and Gender Information Value Date Recorded Sex Assigned at Not on file 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 No / Unsure 08/16/2021 10:10 AM CDT documented as of this encounter Plan of Treatment Upcoming Encounters Date Type Department Care Team (Late Contact Info) Description 05/27/2025 12:45 PM CDT Office Visit [facility] [facility], [address] [address] Johnathan Tello MD Three [facility] [address] [place], [place] [id number] documented as of this encounter Procedures Procedure Name Priority Date/Time Associated Diagnosis Comments HEMOGLOBIN, GLYCOSYLATED Routine 05/15/2023 COMPREHENSIVE METABOLIC PANEL Routine 05/15/2023 LIPID PANEL Routine 05/15/2023 CBC, MANUAL DIFF Routine 05/15/2023 BASIC METABOLIC PANEL Routine 08/24/2021 LIPID PANEL Routine 08/24/2021 MAGNESIUM Routine 08/24/2021 documented in this encounter Results * COMPREHENSIVE METABOLIC PANEL (05/15/2023) SODIUM S/P/B 139 GLUCOSE 108 mg/dL AST 60 BUN 22 CREATININE S/P/B 0.92 0.7 - 1.3 CALCIUM S/P/B 9.4 POTASSIUM S/P/B 4.0 CHLORIDE S/P/B 103 ALT 84 GFR ESTIMATE >60 Narrative Resulting Agency Comment us Default History Genericprovider LABORATORY Final Result * LIPID PANEL (05/15/2023) CHOLESTEROL 217 TRIGLYCERIDES 101 HDL 47 LDL (CALCULATED) 150 Narrative Resulting Agency Comment us Default History Generic[facility] LABORATORY Final Result * CBC, MANUAL DIFF (05/15/2023) WBC 9.5 HGB 16.0 HCT 47.3 PLT 242 Narrative Resulting Agency Comment us Default History Genericprovider LABORATORY Final Result * HEMOGLOBIN, GLYCOSYLATED (05/15/2023) HGB A1C 6.2 % Narrative Resulting Agency Comment us Default History Genericprovider LABORATORY Final Result * MAGNESIUM (08/24/2021) MAGNESIUM 2.0 08/24/2021 us Doc [facility]ORAT[facility] Final Result * BASIC METABOLIC PANEL (08/24/2021) SODIUM S/P/B 138 POTASSIUM S/P/B 4.1 CO2 29 CHLORIDE S/P/B 104 GLUCOSE 120 mg/dL CALCIUM S/P/B 9.4 BUN 18 CREATININE S/P/B 0.82 0.7 - 1.3 08/24/2021 us Doc [facility] Final Result * LIPID PANEL (08/24/2021) CHOLESTEROL 211 HDL 48 TRIGLYCERIDES 79 LDL (CALCULATED) 147 08/24/2021 us Doc [facility] Final Result documented in this encounter Visit Diagnoses Not on filedocumented in this encounter Care Teams Facilities Clerk Relationship Specialty Start Date End Date Mimi Coello NP [address] [place] [address] PCP - General NURSE PRACTITIONER 01/21/21 05/18/23 Agueda Pryor MD [address] [place] [address] PCP - General FAMILY PRACTICE 05/19/23 documented as of this encounter
[2025-05-24 10:17] LABS: Influenza A QL RT-PCR Negative (Negative); Influenza B QL RT-PCR Negative (Negative); RSV RNA, RT-PCR Negative (Negative); SARS-CoV-2 RNA PCR Negative (Negative)
--- NOTE | 2025-05-24 12:09 | PC.NURSE ---
pt was ambulated to the bathroom, states that he feels lightheaded and off
[2025-05-24] MEDS: LACTATED RINGERS 1,000 ML 999 ML IV CONT (12:29)
== END 2025-05-24 14:07 | disposition home or self-care (01) ==
PROVIDERS: Emergency Provider Emergency Medicine
DX: R42 Dizziness and giddiness (principal); Z20.822 Contact with and (suspected) exposure to COVID-19
CPT/HCPCS: 36415; 70450; 71046; 80053; 85025; 87637; 93005; 96360; 99284; A9270; J7120